=== PATIENT | male | born 1965 | race Caucasian/White ===

== ENCOUNTER 2020-12-19 09:46 | Emergency (ER) | payer OTHER, MEDICAID, SELFPAY ==
--- NOTE | 2020-12-19 09:52 | ED.MALEGU ---
HPI - Male Genitourinary General Chief complaint: Abdominal Pain Stated complaint: PAIN IN RIGHT SIDE Time Seen by Provider: 12/19/20 09:52 Source: patient and family Mode of arrival: Ambulatory Limitations: no limitations History of Present Illness HPI Narrative: 55-year-old male nonsmoker with history of hypertension, hyperlipidemia diabetes and kidney stones presents with his in the chief complaint of gradually worsening right-sided pain over the past few days. He states he feels like it started rather suddenly a few days ago and his back and has since wraps around his right side. He states at times he feels like he can not find a position of comfort and is rolling in bed, stating there is no obvious worsening of his pain either. He states sometimes when he moves his seems like his pain worsens and then will improve with rest. He has been nauseated has decreased appetite. He feels a bit bloated. He denies diarrhea or constipation. He denies any dysuria, frequency or urgency. He has had no fever or chills Related Data Home Medications Medication Instructions Recorded Confirmed atenolol 100 mg PO DAILY 12/19/20 12/19/20 atorvastatin 40 mg PO BEDTIME 12/19/20 12/19/20 glipizide 10 mg PO DAILY 12/19/20 12/19/20 meloxicam 15 mg PO DAILY 12/19/20 12/19/20 metformin 1,000 mg PO DAILY 12/19/20 12/19/20 Previous Rx's Medication Instructions Recorded hydrocodone-acetaminophen 1 tab PO Q4-6H PRN #10 tab 12/19/20 ketorolac 10 mg PO Q6H PRN #14 tab 12/19/20 ondansetron 4 mg PO TID-QID PRN #10 tab 12/19/20 tamsulosin [Flomax] 0.4 mg PO DAILY #10 cap 12/19/20 Allergies Allergy/AdvReac Type Severity Reaction Status Date / Time No Known Drug Allergies Allergy Verified 12/19/20 10:13 Review of Systems Constitutional Constitutional: Denies chills, Denies fatigue, Denies fever(s), Denies frequent falls, Denies lethargy and Denies weakness Eyes Eyes: Denies change in vision, Denies eye discharge, Denies irritation and Denies loss of vision ENT Ears, Nose, Mouth, and Throat: Denies change in voice, Denies dizziness, Denies neck pain, Denies sore throat and Denies throat swelling Cardiovascular Cardiovascular: Denies chest pain, Denies irregular heart rhythm, Denies lightheadedness, Denies palpitations, Denies dyspnea, Denies dyspnea on exertion and Denies orthopnea Respiratory Respiratory: Denies cough, Denies dyspnea, Denies dyspnea on exertion and Denies wheezing Gastrointestinal Gastrointestinal: Denies abdominal pain, Denies change in bowel habits, Denies diarrhea, Denies nausea and Denies vomiting Comments: bloating Genitourinary Genitourinary: Reports flank pain Genitourinary: Reports flank pain Musculoskeletal Musculoskeletal: Reports back pain, Denies neck pain and Denies numbness Integumentary/Breasts Skin/Breast: Denies pruritus, Denies erythema, Denies rash and Denies wounds Neurologic Neurologic: Denies behavioral changes, Denies confusion, Denies dizziness, Denies frequent falls, Denies loss of vision, Denies numbness and Denies weakness Psychiatric Psychiatric: Denies anxiety, Denies behavioral changes, Denies confusion, Denies depression, Denies homicidal ideation and Denies suicidal ideation Endocrine Endocrine: Denies fatigue, Denies flushing and Denies palpitations Hematologic/Lymphatic Hematologic/Lymphatic: Denies easy bruising Allergic/Immunologic Allergic/Immunologic: Denies urticaria, Denies throat swelling and Denies wheezing Patient History Social History Smoking Status: Never smoker Smoking Status: Never smoker alcohol intake frequency: 0-2 drinks per day Substance Use Type: does not use Exam Narrative Exam Narrative: GENERAL: [55] year old patient appears stated age. Well-nourished, well-developed patient, in mild distress. Rubbing his right side HEAD: Atraumatic. Normocephalic. EYES: Pupils equal round and reactive. Extraocular motions intact. No scleral icterus. No injection or drainage. ENT: Nose without bleeding, purulent drainage. Throat without erythema, tonsillar hypertrophy or exudate. Airway patent. NECK: Trachea midline. Non tender CARDIOVASCULAR: Regular rate and rhythm without murmurs, gallops, or rubs. RESPIRATORY: Clear to auscultation. Breath sounds equal bilaterally. No wheezes, rales, or rhonchi. GASTROINTESTINAL: Abdomen soft, non-tender, nondistended. EXTREMITIES: No edema or joint tenderness. BACK: Nontender without deformity or crepitance. No flank tenderness. NEURO: AOx3. SKIN: No rash or erythema of visible areas Initial Vital Signs Initial Vital Signs: Vital Signs Temperature 97.8 F 12/19/20 10:09 Pulse Rate 72 12/19/20 10:09 Respiratory Rate 18 12/19/20 10:09 Blood Pressure 216/124 H 12/19/20 10:09 Pulse Oximetry 99 12/19/20 10:09 Course Orders Ordered: Discontinued Medications Sodium Chloride (Normal Saline 0.9%) 1,000 mls @ 1,000 mls/hr IV BOLUS ONE Stop: 12/19/20 10:57 Last Admin: 12/19/20 11:39 Dose: Not Given Documented by: LAVONNE Ketorolac Tromethamine (Ketorolac 60 Mg/2 Ml Vial) 15 mg IV NOW ONE Stop: 12/19/20 09:59 Last Admin: 12/19/20 10:25 Dose: 15 mg Documented by: LAVONNE Vital Signs Vital signs: Vital Signs - 8 hr 12/19/20 10:09 Temperature 97.8 F Pulse Rate 72 Respiratory Rate 18 Blood Pressure 216/124 H Pulse Oximetry 99 MDM - Male Genitourinary Lab Data Result diagrams: 12/19/20 10:05 12/19/20 10:05 Labs: Lab Results 12/19/20 12/19/20 12/19/20 Range/Units 10:00 10:05 10:05 WBC 8.8 (4.5-11.0) X10^3/uL RBC 4.74 (4.5-5.9) X10^6/uL Hgb 14.2 (13.5-17.5) g/dL Hct 41.5 (41-53) % MCV 87.5 (80-100) fL MCH 30.0 (26-34) PG MCHC 34.3 (30-36) % RDW 13.2 (11.6-14.8) % Plt Count 230 (150-400) X10^3/uL Neut % (Auto) 64.2 (50-75) % Lymph % (Auto) 18.9 L (25-40) % [place] % (Auto) 11.6 (3-14) % Eos % (Auto) 4.4 H (2-4) % Baso % (Auto) 0.9 (0-2) % Neut # (Auto) 5600 (4878-9348) /uL Lymph # (Auto) 1700 (6267-6083) /uL [place] # (Auto) 1000 H (0-900) /uL Eos # (Auto) 400 (0-450) /uL Baso # (Auto) 100 (0-100) /uL Sodium 138 (137-145) mmol/L Potassium 4.6 (3.4-5.1) mmol/L Chloride 103 (98-107) mmol/L Carbon Dioxide 25 (22-32) mmol/L BUN 20 (9-20) mg/dL Creatinine 1.23 (0.66-1.25) mg/dL Estimated GFR > 60.0 (>60) mL/min BUN/Creatinine Ratio 16.3 (6-22) Glucose 123 H (70-100) mg/dL Calcium 9.7 (8.4-10.2) mg/dL Total Bilirubin 0.6 (0.2-1.3) mg/dL AST 26 (17-59) IU/L ALT 23 (<50) IU/L Alkaline Phosphatase 61 (38-126) U/L Total Protein 7.6 (6.3-8.2) g/dL Albumin 4.6 (3.5-5.0) g/dL Globulin 3.0 (1.7-4.1) g/dL Albumin/Globulin Ratio 1.5 (1.0-2.8) Lipase 70 (23-300) U/L Urine RBC 5-10/hpf H (0-5/HPF) Urine WBC None seen (0-5/HPF) Urine Bacteria None seen (None) Ur Culture Indicated? Cult not indicated Urine Dip Bedside Urine Glucose Negative Bedside Urine Bilirubin - Negative Bedside Urine Ketone - Negative Urine Specific [place] 1.025 Bedside Urine Occult Blood + Bedside Urine pH 6.0 Bedside Urine Protein - Negative Bedside Urine Urobilinogen - Negative Bedside Urine Nitrite - Negative Bedside Urine Leukocytes - Negative Esterase Imaging Data CT scan - abdomen/pelvis: Radiologist's Impression: [address] [id number] Scan ReportSigned Patient: Fernando PughNed#: [id number]: 1965Acct:[id number]/Sex: 55 / MDate of Service: 12/19/20Loc: EDAccession Number: [id number] Procedure: CT abdomen pelvis w con Ordering Provider: Chidi Odell D.O. PROCEDURE: CT ABDOMEN PELVIS W CON INDICATIONS: severe right sided abdominal pain, unlike prior kidney stone TECHNIQUE: After the administration of intravenous contrast, 5 mm thick sections acquired from the diaphragm to the symphysis. 5 mm coronal and sagittal reformats were acquired. For radiation dose reduction, the following was used: automated exposure control, adjustment of mA and/or kV according to patient size. COMPARISON: [facility], CR, XR ACUTE ABDOMEN SERIES, 12/19/2020, 10:02. FINDINGS: Image quality: Excellent. ABDOMEN: Lung bases: Lung bases are clear. Heart size is normal. Solid organs: Liver is normal in size and enhancement. Gallbladder wall is not thickened. Biliary system is non dilated. Pancreas enhances normally. Spleen is normal in size and enhancement. No adrenal nodules. There is an obstructing stone seen within the right proximal ureter, as on series 2, image 46 and on series 4, image 34, measuring 8 mm. There is associated moderate right-sided hydroureter and hydronephrosis. Nonobstructing bilateral renal stones are seen, which measure up to 2 mm on the right and up to 4 mm on the left. There is no left-sided hydronephrosis. There is a delayed nephrogram seen on the right. Peritoneum and bowel: Bowel loops demonstrate normal wall thickness and caliber. No free fluid or air. A rlvz-ga-wigcxzvo amount of stool can be seen within the proximal colon. Nodes and vessels: No retroperitoneal or mesenteric adenopathy by size criteria. Aorta and inferior vena cava are normal in size. Atherosclerotic calcification is noted. There is focal stenosis seen involving the proximal SMA, with largely soft plaque, with approximately 70% luminal narrowing, as on series 4, image 35 Miscellaneous: A mild periumbilical hernia is seen, containing fat. PELVIS: Genitourinary: Bladder wall thickness is normal. Miscellaneous: No inguinal hernias or adenopathy. Bones: No suspicious bony lesions. There is a remote L1 anterior wedge deformity. No acute vertebral body compression fractures. Degenerative changes are seen throughout, which are most prominent involving the lower lumbar spine IMPRESSION: There is an obstructing 8 mm stone seen within the right proximal ureter, with associated hydroureter and hydronephrosis. There is a delayed nephrogram seen on the right, which is suggestive of reduced kidney function. Nonobstructing bilateral renal stones can be seen. Focal narrowing of the proximal SMA, approximately 70%. A mild to moderate amount of stool can be seen within the proximal colon. Incidental note is made of: Mild periumbilical hernia Remote L1 anterior wedge deformity Focal lower lumbar spine degenerative change Note: Case discussed by telephone with Dr. Odell at 10:10 a.m. [place] time on December 19, 2020. Dictated by: Rocco Basilio M.D. on 12/19/2020 at 10:07 Approved by: Rocco Basilio M.D. on 12/19/2020 at 10:12 MDM Narrative Medical decision making narrative: Patient with a large obstructing proximal stone in the absence of any signs of sepsis. His pain is well controlled, he shows no sign of infection such as fever, elevated white blood cell count and no infectious findings in urine. He is able to tolerate orals. No evidence of acute kidney injury. Patient given extensive return precautions and encouraged to follow closely with Urology, he was notified that he very well could need a procedure to help the stone pass. He and understand and are in agreement with the diagnosis and plan. Questions answered to their apparent satisfaction Discharge Plan Departure Patient Disposition: Home Clinical Impression: Kidney stone on right side Instructions: DI for Kidney Stones Activity Restrictions/Additional Instructions: *You have been diagnosed with [8 mm kidney stone on the right side with some swelling of the ureter.Your kidney function is good and there is no sign of infection.] *What to do: *Take medications as directed: Prescription sent to [facility] in [place] *Follow up with your primary care provider in 2-3 days, call for an appointment. Let them know you were seen in the Emergency Department and that we ask that you be seen in follow up. I've given you contact information for Urology, you may need a procedure to help with this stone. Please call their office Monday morning to arrange an appointment and I will fax them a copy of your visit *Return to ER if you should have any new, worsening or concerning symptoms, such as [increasing pain, shaking chills, persistent vomiting or other bothersome symptoms] Prescriptions: New hydrocodone-acetaminophen 5-325 mg tablet 1 tab PO Q4-6H PRN (Reason: pain) Qty: 10 RF: 0 ketorolac 10 mg tablet 10 mg PO Q6H PRN (Reason: pain) Qty: 14 RF: 0 tamsulosin [Flomax] 0.4 mg capsule 0.4 mg PO DAILY Qty: 10 RF: 0 ondansetron 4 mg tablet,disintegrating 4 mg PO TID-QID PRN (Reason: nausea and vomiting) Qty: 10 RF: 0 No Action atorvastatin 40 mg tablet 40 mg PO BEDTIME RF: 0 meloxicam 15 mg tablet 15 mg PO DAILY RF: 0 glipizide 10 mg tablet 10 mg PO DAILY RF: 0 metformin 1,000 mg tablet 1,000 mg PO DAILY RF: 0 atenolol 50 mg tablet 100 mg PO DAILY RF: 0 Referrals: Deb Corley MD [Physician] - Kody Smith MD [Primary Care Provider] -
--- NOTE | 2020-12-19 09:59 | DI.RAD.S_ITS ---
PROCEDURE: XR ACUTE ABDOMEN SERIES INDICATIONS: Abdominal pain, decreased BM TECHNIQUE: One view chest and two views of the abdomen were acquired. COMPARISON: [facility], RG, XR CXR 1 VIEW, 12/06/2004, 15:55. [facility], RG, XR PELVIS 1V, 12/06/2004, 15:46. FINDINGS: Surgical changes and devices: None. Chest: Lungs are clear. The cardiac contours are within normal limits. The aorta demonstrates calcification and tortuosity. No pleural effusions. No pneumoperitoneum. Abdomen: Bowel gas pattern is normal. There is a moderate amount of stool seen within the colon. No suspicious calcifications. Visualized solid organ contours appear normal. Bones: No suspicious bony lesions. Age-appropriate bony degenerative changes are seen. IMPRESSION: There is a moderate amount of stool seen within the colon, which is consistent with the given history. Dictated by: Rocco Basilio M.D. on 12/19/2020 at 9:23 Approved by: Rocco Basilio M.D. on 12/19/2020 at 9:24
[2020-12-19 10:09] VITALS: BP 216/124; PULSE 72; RESP 18; TEMP 36.6; O2SAT 99
[2020-12-19 10:21] LABS: Add Manual Diff / Slide Review NO; Basophils Absolute Auto 100 /uL (0-100); Basophils Percent Auto 0.9 % (0-2); Eosinophils Absolute Auto 400 /uL (0-450); Eosinophils Percent Auto 4.4 % (2-4); Hematocrit 41.5 % (41-53); Hemoglobin 14.2 g/dL (13.5-17.5); Lymphocytes Absolute Auto 1700 /uL (1100-4500); Lymphocytes Percent Auto 18.9 % (25-40); Mean Corpuscular HGB Conc 34.3 % (30-36); Mean Corpuscular Volume 87.5 fL (80-100); Monocytes Absolute Auto 1000 /uL (0-900); Monocytes Percent Auto 11.6 % (3-14); Neutrophils Absolute Auto 5600 /uL (1500-7000); Neutrophils Percent Auto 64.2 % (50-75); Platelet Count 230 X10^3/uL (150-400); Red Blood Cell Count 4.74 X10^6/uL (4.5-5.9); Red Cell Distribution Width 13.2 % (11.6-14.8); White Blood Cell Count 8.8 X10^3/uL (4.5-11.0)
[2020-12-19] MEDS: KETOROLAC 60 MG/2 ML VIAL 15 MG IV (10:25)
[2020-12-19 10:27] LABS: Alanine Aminotransferase 23 IU/L (<50); Albumin 4.6 g/dL (3.5-5.0); Albumin Globulin Ratio 1.5 (1.0-2.8); Alkaline Phosphatase 61 U/L (38-126); Aspartate Aminotransferase 26 IU/L (17-59); BUN Creatinine Ratio 16.3 (6-22); Bilirubin Total 0.6 mg/dL (0.2-1.3); Blood Urea Nitrogen 20 mg/dL (9-20); Calcium 9.7 mg/dL (8.4-10.2); Carbon Dioxide 25 mmol/L (22-32); Chloride 103 mmol/L (98-107); Estimated Glomerular Filt Rate > 60.0 mL/min (>60); Glucose 123 mg/dL (70-100); HEMOLYSIS < 15 (0-50); Lipase 70 U/L (23-300); Potassium 4.6 mmol/L (3.4-5.1); Sodium 138 mmol/L (137-145); Total Protein 7.6 g/dL (6.3-8.2)
--- NOTE | 2020-12-19 10:34 | DI.CT.S_ITS ---
PROCEDURE: CT ABDOMEN PELVIS W CON INDICATIONS: severe right sided abdominal pain, unlike prior kidney stone TECHNIQUE: After the administration of intravenous contrast, 5 mm thick sections acquired from the diaphragm to the symphysis. 5 mm coronal and sagittal reformats were acquired. For radiation dose reduction, the following was used: automated exposure control, adjustment of mA and/or kV according to patient size. COMPARISON: [facility], CR, XR ACUTE ABDOMEN SERIES, 12/19/2020, 10:02. FINDINGS: Image quality: Excellent. ABDOMEN: Lung bases: Lung bases are clear. Heart size is normal. Solid organs: Liver is normal in size and enhancement. Gallbladder wall is not thickened. Biliary system is non dilated. Pancreas enhances normally. Spleen is normal in size and enhancement. No adrenal nodules. There is an obstructing stone seen within the right proximal ureter, as on series 2, image 46 and on series 4, image 34, measuring 8 mm. There is associated moderate right-sided hydroureter and hydronephrosis. Nonobstructing bilateral renal stones are seen, which measure up to 2 mm on the right and up to 4 mm on the left. There is no left-sided hydronephrosis. There is a delayed nephrogram seen on the right. Peritoneum and bowel: Bowel loops demonstrate normal wall thickness and caliber. No free fluid or air. A pvxh-vx-qszfoihd amount of stool can be seen within the proximal colon. Nodes and vessels: No retroperitoneal or mesenteric adenopathy by size criteria. Aorta and inferior vena cava are normal in size. Atherosclerotic calcification is noted. There is focal stenosis seen involving the proximal SMA, with largely soft plaque, with approximately 70% luminal narrowing, as on series 4, image 35 Miscellaneous: A mild periumbilical hernia is seen, containing fat. PELVIS: Genitourinary: Bladder wall thickness is normal. Miscellaneous: No inguinal hernias or adenopathy. Bones: No suspicious bony lesions. There is a remote L1 anterior wedge deformity. No acute vertebral body compression fractures. Degenerative changes are seen throughout, which are most prominent involving the lower lumbar spine IMPRESSION: There is an obstructing 8 mm stone seen within the right proximal ureter, with associated hydroureter and hydronephrosis. There is a delayed nephrogram seen on the right, which is suggestive of reduced kidney function. Nonobstructing bilateral renal stones can be seen. Focal narrowing of the proximal SMA, approximately 70%. A mild to moderate amount of stool can be seen within the proximal colon. Incidental note is made of: Mild periumbilical hernia Remote L1 anterior wedge deformity Focal lower lumbar spine degenerative change Note: Case discussed by telephone with Dr. Odell at 10:10 a.m. [place] time on December 19, 2020. Dictated by: Rocco Basilio M.D. on 12/19/2020 at 10:07 Approved by: Rocco Basilio M.D. on 12/19/2020 at 10:12
[2020-12-19 10:41] LABS: Bacteria Urine None Seen; WBC Urine None Seen (0-5/HPF)
[2020-12-19 11:11] LABS: Culture Indicated Urine Cult Not Indicated; RBC Urine 5-10/HPF (0-5/HPF)
[2020-12-19 11:39] VITALS: BP 194/99; PULSE 69; RESP 16; O2SAT 98
== END 2020-12-19 11:40 | disposition home or self-care (01) ==
PROVIDERS: Emergency Provider Emergency Medicine; PCP Family Medicine
DX: N20.0 Calculus of kidney (principal); R11.0 Nausea
CPT/HCPCS: 36415; 74022; 74177; 80053; 81003; 81015; 83690; 85025; 96374; 99284; J1885; Q9967

== ENCOUNTER → 2020-12-22 13:37 | Outpatient (CLI) | payer OTHER, MEDICAID, SELFPAY ==
--- NOTE | 2020-12-22 13:42 | DI.RAD.S_ITS ---
PROCEDURE: XR KUB INDICATIONS: Kidney stone TECHNIQUE: One view of the abdomen acquired. COMPARISON: [facility], CT, CT ABDOMEN PELVIS W CON, 12/19/2020, 10:50. [facility], CR, XR ACUTE ABDOMEN SERIES, 12/19/2020, 10:02. FINDINGS: Surgical changes and devices: None. Bowel: Bowel gas pattern is normal. Soft tissues: No new suspicious abdominal calcifications. The obstructive calculus within the proximal right ureter is again seen, without significant change in position and appears somewhat smaller than it had on CT scanning, but overall measures approximately 6 x 7 mm. Visualized solid organ contours appear normal in size. Bones: No suspicious bony lesions. IMPRESSION: Proximal right ureteral stone measures approximately 6 x 7 mm, in the same position as it was present in on CT scanning 12/19/20. Dictated by: Khurram Hardy M.D. on 12/22/2020 at 15:20 Approved by: Khurram Hardy M.D. on 12/22/2020 at 15:27
== END ==
PROVIDERS: PCP Family Medicine; Referring Provider Specialist; Visit Provider Specialist
DX: N20.1 Calculus of ureter (principal)
CPT/HCPCS: 74018

== ENCOUNTER → 2023-10-04 10:51 | Outpatient (CLI) | payer OTHER, MEDICAID, SELFPAY ==
--- NOTE | 2023-10-04 | DI.RAD.S_ITS ---
PROCEDURE: XR KNEE LT 3V INDICATIONS: LEFT KNEE PAIN TECHNIQUE: 3 views of the knee were acquired. COMPARISON: None. FINDINGS: Bones: Cortical lucency through the tibial spine and lateral tibial plateau. Soft tissues: Large joint effusion. No suspicious soft tissue calcifications. IMPRESSION: Cortical lucency through the lateral tibial plateau and tibial spine. Differential includes artifact or may indicate fracture. Additionally, there is a large joint effusion. Consider MRI to evaluate for injury. Dictated by: Ga Larry M.D. on 10/04/2023 at 11:50 Approved by: Ga Larry M.D. on 10/04/2023 at 11:51
== END ==
LOC: RAD 10:53
PROVIDERS: PCP Family Medicine; Referring Provider Family Medicine; Visit Provider Family Medicine
DX: M25.562 Pain in left knee (principal); M25.462 Effusion, left knee
CPT/HCPCS: 73562

== ENCOUNTER → 2023-10-08 07:43 | Outpatient (CLI) | payer OTHER, MEDICAID, SELFPAY ==
--- NOTE | 2023-10-08 07:44 | DI.MRI.S_ITS ---
PROCEDURE: MR KNEE LT WO CON INDICATIONS: Pain in left knee TECHNIQUE: Noncontrast sagittal PD fast spin echo and T2 fast spin echo with fat saturation, sagittal 3-D FLASH with fat saturation; coronal T1 spin echo and PD fast spin echo with fat saturation, and axial PD fast spin echo with fat saturation through the knee. COMPARISON: [facility], CR, XR KNEE LT 3V, 10/04/2023, 11:01. FINDINGS: Image quality: Excellent. Menisci: Peripheral displacement of medial meniscus bowing medial collateral ligament is seen. Complex oblique tear involving body and posterior horn of medial meniscus is seen extending to both superior and inferior articulating surfaces. The lateral meniscus is intact. The meniscal root ligaments appear intact. Cruciate ligaments: The anterior cruciate ligament is thickened with intrasubstance T2 hyperintense signal. The posterior cruciate ligament is intact. Medial structures: The medial collateral ligament appears thickened with surrounding soft tissue edema at its proximal insertion. Visualized portions of the pes anserinus tendons appear normal. No abnormal bursal fluid. Lateral structures: The lateral collateral ligament, long and short heads of the biceps femoris tendon appear intact. The popliteus tendon appears normal. Iliotibial band appears normal. Anterior structures: Nonspecific mild soft tissue edema along anterior aspect of patella and patella tendon is seen. Small amount of fluid distending prepatellar bursa is also noted. The quadriceps and patellar tendons appear intact. Patellar alignment is normal. No femoral trochlear dysplasia or ventral trochlear prominence. No edema in the infrapatellar fat pad. Bones and cartilage: No bone marrow contusions or fractures. 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 Low-grade chondromalacia is also noted involving medial facet of patella cartilage. Joint space: There is moderate knee joint fluid. No Bull's cyst. Normal appearing synovial plicae are incidentally noted. IMPRESSION: 1. Complex tear involving body and posterior horn of medial meniscus extending to both superior and inferior articulating surfaces. The lateral meniscus is intact. 2. Thickened ACL with intrasubstance T2 hyperintense signal suggestive of low to moderate grade intrasubstance partial-thickness tear. No full-thickness ACL rupture. The PCL is intact. 3. Low to moderate grade sprain/intrasubstance partial-thickness tear involving medial collateral ligament. 4. Fluid within prepatellar bursa concerning for low-grade bursitis. The quadriceps tendon and patellar tendon are intact. 5. 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 Low-grade chondromalacia also noted involving medial facet of patella cartilage. No fracture or dislocation. 6. Moderate joint effusion, no gross loose bodies. Dictated by: Laurent Aguilar M.D. on 10/09/2023 at 10:05 Approved by: Laurent Aguilar M.D. on 10/09/2023 at 11:05
== END ==
LOC: MRI 07:43
PROVIDERS: PCP Family Medicine; Referring Provider Family Medicine; Visit Provider Family Medicine
DX: S83.232A Complex tear of medial meniscus, current injury, left knee, initial encounter (principal); S83.412A Sprain of medial collateral ligament of left knee, initial encounter; M17.12 Unilateral primary osteoarthritis, left knee; M22.42 Chondromalacia patellae, left knee; M25.562 Pain in left knee; M25.462 Effusion, left knee
CPT/HCPCS: 73721

== ENCOUNTER 2024-03-26 09:45 | Outpatient (RCR) | payer OTHER, MEDICAID, SELFPAY ==
--- NOTE | 2024-02-13 18:29 | PT.OIE ---
Current Diagnoses Stiffness of unspecified knee, not elsewhere classified (02/13/24) Muscle weakness (generalized) (02/13/24) Other abnormalities of gait and mobility (02/13/24) Other specified postprocedural states (02/13/24) Visit Care Team Role Provider Type Kody Smith MD Family Provider Physician Primary Care Provider Specialty: Family Practice Address: [facility] [place], [address] Email: [email or web address] Mayi Arauz PA-C Attending Provider Non-Staff Referring Provider Specialty: General Surgery Address: [address] [place] [address], [id number] Email: Physical Therapy Initial Evaluation PT-OP-A Visit Information Start: 02/08/24 18:59 Freq: Status: Active Protocol: Document 02/13/24 13:33 LRN (Rec: 02/13/24 18:25 LRN [id number]) Out-Patient Physical Therapy Visit Information Visit Information Visit Type Initial Evaluation Visit Start Time 13:33 Visit Stop Time 14:24 Visit Number 1 Evaluation Information Evaluation Date 02/13/24 Precautions Precautions Diabetes type II, HBP mostly controlled. PT-OP-B Current Condition Start: 02/08/24 18:59 Freq: Status: Active Protocol: Document 02/13/24 13:33 LRN (Rec: 02/13/24 18:25 LRN [id number]) Current Condition History of Current Condition Onset Date 3 wks ago (01/24/24) Current Complaints R knee pain at rest, difficulty walking, rtn to work part-time. History of Current Condition Pt is s/p L knee arthroscopy with medial menisectomy and chondroplasty surgery due to reported torn ACL & meniscus, performed at [facility]. Pt states he has had L knee pain a few years, but 5 months ago twisted wrong and had increased swelling for 3 months and subsequest surgery. He states he has HBP that is now under reasonable control with diet and medication. States avg BP is 150/90 (taken 3 wks ago). Walking is most comfortable. If sit for any length of time it is most uncomfortable. 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 Treatment Goals Patient/Caregiver Goals Pt goal is to: -improve L knee ROM, -decrease ache at nighttime ( current 7/10), -walk with a normal gait, -finish work of cabinets, 8 hr day, 6/days a week with pain less than 7/10. -HEP. 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 PT-OP-C Subjective Start: 02/08/24 18:59 Freq: Status: Active Protocol: Document 02/13/24 13:33 LRN (Rec: 02/13/24 18:25 LRN [id number]) Patient Questionnaires Lower Extremity Functional Scale LEFS Score 41 LEFS Impairment 40 to 59% Impaired (Score 32- 47) OP-PT Pain Assessment Pain Assessment Grid Paper Pain Assessment Grid Completed Yes Location L knee Pain Location Details Generally at L knee joint Intensity 7 Scale Used Numeric (0 - 10) Description Aching PT-OP-D Balance Start: 02/08/24 18:59 Freq: Status: Active Protocol: Document 02/13/24 13:33 LRN (Rec: 02/13/24 18:25 LRN [id number]) OP-PT Balance Assessment Standing Balance Static Standing Balance Ability Good Dynamic Standing Balance Ability Good Device Used None Standing Balance Comments Pt weight bears more on RLE. Not appropriate for Single leg stance balancing. Villarreal Fall Scale Copyright Permission PT-OP-G Mobility & Gait Start: 02/08/24 18:59 Freq: Status: Active Protocol: Document 02/13/24 13:33 LRN (Rec: 02/13/24 18:25 LRN [id number]) OP Gait Assessment Gait Gait Assistance Required: Independent Able to Maintain Weight Bearing Status Yes During Gait Assistive Devices Assistive Device None Gait Deviations General Gait Pattern Antalgic,Decreased Stride Length,Lateral Trunk Lean,Wide Based Gait Factors Limiting Gait Function Factors Limiting Gait Function Decreased Activity Tolerance, Decreased Sensation,Decreased Strength,Limited Range of Motion,Pain,Poor Balance Stair Climbing Evaluation Technique/Endurance Stair Climbing Direction Ascend and Descend Stair Climbing Technique Step to Step Number of Steps Climbed 4 Comments Stair Climbing Comments Pt reports not ambulating stairs, at home has chair lift . Pt has 16 stairs at home ( shop below). Pt reports at work ambulating 4 steps in a step to step gait . PT-OP-H Neuro Start: 02/08/24 18:59 Freq: Status: Active Protocol: Document 02/13/24 13:33 LRN (Rec: 02/13/24 18:25 LRN [id number]) Sensation Evaluation Comments Summary Comments Decreased sensation to soft touch at posterolateral L knee jt and lateral lower leg. PT-OP-J Posture/Palpation/Skin Start: 02/08/24 18:59 Freq: Status: Active Protocol: Document 02/13/24 13:33 LRN (Rec: 02/13/24 18:25 LRN [id number]) Posture Evaluation Position Standing T-Spine Posture Increased Kyphosis L-Spine Posture Decreased Lordosis Weight Distribution Weight Shifted Right Hip Posture (L) Flexed,(R) Flexed Knee Posture (L) Excess Flexion Comments Posture Comments Hips flexed 3 deg's Palpation Assessment Location L knee Palpation Location L knee anteriorly Palpation Findings Edema,Soft Tissue Tightness, Tenderness Palpation Details Increased temperature anteriorly of knee joint. PT-OP-K Range of Motion Start: 02/08/24 18:59 Freq: Status: Active Protocol: Document 02/13/24 13:33 LRN (Rec: 02/13/24 18:25 LRN [id number]) Knee Goniometric Range of Motion Knee Right Knee ROM WFL Yes Patient Position Supine Flexion Active (degrees) 128 Extension Active (degrees) 0 Comments AROM: 0-128 deg's with R knee pain. AROM: 0-120 deg's painfree range. Left Knee ROM WFL No Patient Position Supine Flexion Active (degrees) 87 Extension Active (degrees) 15 PT-OP-M Strength Start: 02/08/24 18:59 Freq: Status: Active Protocol: Document 02/13/24 13:33 LRN (Rec: 02/13/24 18:25 LRN [id number]) Hip Strength Hip Manual Muscle Testing Right Comments Generally 5/5 except deferred IR/ER MMT. Left Flexion (L2) 3 Fair Abduction 5 Normal Adduction 2 Poor Comments Deferred IR/ER MMT due to surgery. Knee Strength Knee Manual Muscle Testing Right Comments Generally 5/5 Left Flexion (S2) 3 Fair Extension (L3) 3 Fair Comments Deferred due to pain. Pt is not able to perform full AROM due to pain. Ankle/Foot Strength Ankle and Foot Manual Muscle Testing Right Comments Generally 5/5 Left Dorsiflexion (L4) 5 Normal Plantarflexion (S1) 5 Normal Inversion 4 Good Eversion (S1) 5 Normal PT-OP-Q Treatments Start: 02/08/24 18:59 Freq: Status: Active Protocol: Document 02/13/24 13:33 LRN (Rec: 02/13/24 18:25 LRN [id number]) Therapeutic Exercises Supine Exercises Heel Slide Side left Reps/Minutes 1-2 SH, 8-10x SLR Side left Reps/Minutes 10x Comments Cued to breath QS Side left Reps/Minutes 1 SH x 16 SAQ Side left Equipment Used Pillow roll under thigh Reps/Minutes 7x - 10x Self-Care/Home Management Treatment Education Other Education Discussed results of evaluation, goals, and plan of care (POC) with pt, discussed attendance/cx/dns policy; pt agreeable to goals, attendance /cx/dns policy and POC. Pt educated in self care edema management (RICE) with instructions to skin from ice pack with towel, I/S pt on how to ice at work and elevate legs at lunchtime and at home. Suggested FREDDY wrap of knee while at work if he has one. Activities Self-Care/Home Management Activities Issued & reviewed HEP: Sitting active knee flex/ext; supine: QS, SLR, hip AB/AD. PT-OP-T Assessment and Plan Start: 02/08/24 18:59 Freq: Status: Active Protocol: Document 02/13/24 13:33 LRN (Rec: 02/13/24 18:25 LRN [id number]) Physical Therapy Assessment Rehab Potential Rehabilitation Potential Good Evaluation Complexity Number of Personal Factors/Comorbidities 1-2 Number of Body Systems Impaired 4 or More Clinical Presentation at Evaluation Evolving Impairments Impairments Activity Tolerance,Balance, Functional Activities,Gait, Pain,Posture,ROM,Sensation, Soft Tissue Mobility,Strength, Transfers Goals Four Impairment L knee achy pain rated 7/10 Impairment Swelling and pain in L knee with L knee nighttime pain rated 7/10. Short Term Goal (STG) Pt will be educated in sleeping postures and use of FREDDY wrap to reduce L knee edema and pain. STG Duration 2 wks - 02/27/24 Commodity Analyst Goal (LTG) Decrease ache at nighttime to no greater than 3/10 to improve sleep. LTG Duration 8 wks-04/12/24 Three Impairment Decreased L knee strength limiting gait Short Term Goal (STG) Improve L knee/hip strength to 4/5 with pt able to walk with a normal gait. STG Duration 4 wks-03/12/24 Commodity Analyst Goal (LTG) Improve L knee/hip strength with pt tolerating finish work of cabinets, at prior level of: 8 hr days, 6 days a week. LTG Duration 8 wks-04/12/24 Two Impairment Decreased L knee AROM limiting stair ambulation Short Term Goal (STG) Improve L knee AROM 0-100 deg' s with pt able to tolerate sitting in chair for 15-30 minutes for meals. STG Duration 4 wks-03/12/24 Group Home Goal (LTG) Improve L knee AROM to 0-115 deg's with pt able to amb stairs with a step over step gait. LTG Duration 8 wks-04/12/24 One Impairment Pt lacks appropriate self care HEP. Short Term Goal (STG) Pt will be educated in proper standing posture. STG Duration 1 wks - 02/20/24 Group Home Goal (LTG) Pt will be independent in an effective self care HEP for core/hip strengthening and mobility ex's. LTG Duration 8 wks-04/12/24 Assessment Summary Assessment Pt is a 58 yo male who is almost 3 wks s/p L knee arthroscopy with medial menisectomy and chondroplasty surgery due to a reported torn ACL & meniscus. As expected, the pt is decreased in L knee AROM and strength, and in L hip/ankle strength resulting in antalgic gait and reported difficulty with stair ambulation. Balance was not formally assessed but the pt avoids full weightbearing on his L LE; therefore balance is limited. The pt will benefit from skilled physical therapy to work towards achieving the above stated goals. Physical Therapy Plan Frequency and Duration Frequency of Treatment 2x/Week Duration of treatment (weeks) 18 Plan of Care Start Date 02/13/24 Plan of Care End Date 04/12/24 Therapeutic Interventions Therapeutic Interventions Gait Training,Home Exercise Program,Joint Mobilizations, Manual Therapy,Neuromuscular Re-education,Self-Care/Home Management,Soft Tissue Mobilization,Taping, Therapeutic Activities, Therapeutic Exercises Modalities Cold Pack/Ice Massage,Electric Stimulation,Hot Packs, Ultrasound Next Visit Focus/Plan Next Note Type Treatment Note Next Visit Plan Check BP. Assess hip PROM and MMT hip IR/ER. Review HEP & use of FREDDY wrap if pt wants to use one during work hours. Assess response to RICE technique for edema/pain management (measure swelling). Progress AROM ex to improve ROM and if tolerated can start closed chain very low resistance LE strengthening ( bike) and progress Jorge LLE strengthening to include ankle and hip strengthening. POC: L knee ROM, strengthening, gait (level & stairs), balance training.
--- NOTE | 2024-02-13 18:29 | PT.OPPOC ---
Physical, Occupational & Speech Therapy At [facility] Current Diagnoses Stiffness of unspecified knee, not elsewhere classified (02/13/24) Muscle weakness (generalized) (02/13/24) Other abnormalities of gait and mobility (02/13/24) Other specified postprocedural states (02/13/24) Visit Care Team Role Provider Type Kody Smith MD Family Provider Physician Primary Care Provider Specialty: Family Practice Address: [facility] [place], [address] Email: [email or web address] Mayi Arauz PA-C Attending Provider Non-Staff Referring Provider Specialty: General Surgery Address: [address] [place] [address], [address] Email: Plan Of Care PT-OP-T Assessment and Plan Start: 02/08/24 18:59 Freq: Status: Active Protocol: Document 02/13/24 13:33 LRN (Rec: 02/13/24 18:25 LRN [id number]) Physical Therapy Assessment Rehab Potential Rehabilitation Potential Good Evaluation Complexity Number of Personal Factors/Comorbidities 1-2 Number of Body Systems Impaired 4 or More Clinical Presentation at Evaluation Evolving Impairments Impairments Activity Tolerance,Balance, Functional Activities,Gait, Pain,Posture,ROM,Sensation, Soft Tissue Mobility,Strength, Transfers Goals Four Impairment L knee achy pain rated 7/10 Impairment Swelling and pain in L knee with L knee nighttime pain rated 7/10. Short Term Goal (STG) Pt will be educated in sleeping postures and use of FREDDY wrap to reduce L knee edema and pain. STG Duration 2 wks - 02/27/24 Usp Goal (LTG) Decrease ache at nighttime to no greater than 3/10 to improve sleep. LTG Duration 8 wks-04/12/24 Three Impairment Decreased L knee strength limiting gait Short Term Goal (STG) Improve L knee/hip strength to 4/5 with pt able to walk with a normal gait. STG Duration 4 wks-03/12/24 Automotive Sales Associate Goal (LTG) Improve L knee/hip strength with pt tolerating finish work of cabinets, at prior level of: 8 hr days, 6 days a week. LTG Duration 8 wks-04/12/24 Two Impairment Decreased L knee AROM limiting stair ambulation Short Term Goal (STG) Improve L knee AROM 0-100 deg' s with pt able to tolerate sitting in chair for 15-30 minutes for meals. STG Duration 4 wks-03/12/24 Usp Goal (LTG) Improve L knee AROM to 0-115 deg's with pt able to amb stairs with a step over step gait. LTG Duration 8 wks-04/12/24 One Impairment Pt lacks appropriate self care HEP. Short Term Goal (STG) Pt will be educated in proper standing posture. STG Duration 1 wks - 02/20/24 Automotive Sales Associate Goal (LTG) Pt will be independent in an effective self care HEP for core/hip strengthening and mobility ex's. LTG Duration 8 wks-04/12/24 Assessment Summary Assessment Pt is a 58 yo male who is almost 3 wks s/p L knee arthroscopy with medial menisectomy and chondroplasty surgery due to a reported torn ACL & meniscus. As expected, the pt is decreased in L knee AROM and strength, and in L hip/ankle strength resulting in antalgic gait and reported difficulty with stair ambulation. Balance was not formally assessed but the pt avoids full weightbearing on his L LE; therefore balance is limited. The pt will benefit from skilled physical therapy to work towards achieving the above stated goals. Physical Therapy Plan Frequency and Duration Frequency of Treatment 2x/Week Duration of treatment (weeks) 18 Plan of Care Start Date 02/13/24 Plan of Care End Date 04/12/24 Therapeutic Interventions Therapeutic Interventions Gait Training,Home Exercise Program,Joint Mobilizations, Manual Therapy,Neuromuscular Re-education,Self-Care/Home Management,Soft Tissue Mobilization,Taping, Therapeutic Activities, Therapeutic Exercises Modalities Cold Pack/Ice Massage,Electric Stimulation,Hot Packs, Ultrasound Next Visit Focus/Plan Next Note Type Treatment Note Next Visit Plan Check BP. Assess hip PROM and MMT hip IR/ER. Review HEP & use of FREDDY wrap if pt wants to use one during work hours. Assess response to RICE technique for edema/pain management (measure swelling). Progress AROM ex to improve ROM and if tolerated can start closed chain very low resistance LE strengthening ( bike) and progress Jorge LLE strengthening to include ankle and hip strengthening. POC: L knee ROM, strengthening, gait (level & stairs), balance training. Plan of Care Dates Plan of Care Start Date 02/13/24 Plan of Care End Date 04/12/24 Electronically Signed by: Sarah Cobian, PT 02/13/24 2149 If you are in agreement with this Plan of Care, please return a signed and dated copy. I have reviewed this Plan of Care and certify that the skilled therapy services above are required to meet the patient?s needs. Physician Signature Date Printed Name and Credentials Clinical Instructor Signature Printed Name and Credentials
--- NOTE | 2024-02-15 17:48 | PT.OTN ---
Current Diagnoses Stiffness of unspecified knee, not elsewhere classified (02/15/24) Muscle weakness (generalized) (02/15/24) Other abnormalities of gait and mobility (02/15/24) Other specified postprocedural states (02/15/24) Physical Therapy Treatment Note PT-OP-A Visit Information Start: 02/08/24 18:59 Freq: Status: Active Protocol: Document 02/15/24 09:56 LRN (Rec: 02/15/24 10:37 LRN [id number]) Out-Patient Physical Therapy Visit Information Visit Information Visit Type Treatment Note Visit Note Supine: End of treatment: BP after 2' rest: 156/86; HR 65 Visit Start Time 09:56 Visit Stop Time 10:36 Visit Number 2 Evaluation Information Evaluation Date 02/13/24 Precautions Precautions Diabetes type II, HBP mostly controlled. PT-OP-B Current Condition Start: 02/08/24 18:59 Freq: Status: Active Protocol: Document 02/13/24 13:33 LRN (Rec: 02/13/24 18:25 LRN [id number]) Current Condition History of Current Condition Onset Date 3 wks ago (01/24/24) Current Complaints R knee pain at rest, difficulty walking, rtn to work part-time. History of Current Condition Pt is s/p L knee arthroscopy with medial menisectomy and chondroplasty surgery due to reported torn ACL & meniscus, performed at [facility]. Pt states he has had L knee pain a few years, but 5 months ago twisted wrong and had increased swelling for 3 months and subsequest surgery. He states he has HBP that is now under reasonable control with diet and medication. States avg BP is 150/90 (taken 3 wks ago). Walking is most comfortable. If sit for any length of time it is most uncomfortable. 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 Treatment Goals Patient/Caregiver Goals Pt goal is to: -improve L knee ROM, -decrease ache at nighttime ( current 7/10), -walk with a normal gait, -finish work of cabinets, 8 hr day, 6/days a week with pain less than 7/10. -HEP. 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 PT-OP-C Subjective Start: 02/08/24 18:59 Freq: Status: Active Protocol: Document 02/15/24 09:56 LRN (Rec: 02/15/24 10:37 LRN [id number]) OP-PT Subjective Patient Comments Patient Comments Doing icing a lot. Exercising on bed PT-OP-D Balance Start: 02/08/24 18:59 Freq: Status: Active Protocol: Document 02/13/24 13:33 LRN (Rec: 02/13/24 18:25 LRN [id number]) OP-PT Balance Assessment Standing Balance Static Standing Balance Ability Good Dynamic Standing Balance Ability Good Device Used None Standing Balance Comments Pt weight bears more on RLE. Not appropriate for Single leg stance balancing. Villarreal Fall Scale Copyright Permission PT-OP-G Mobility & Gait Start: 02/08/24 18:59 Freq: Status: Active Protocol: Document 02/13/24 13:33 LRN (Rec: 02/13/24 18:25 LRN [id number]) OP Gait Assessment Gait Gait Assistance Required: Independent Able to Maintain Weight Bearing Status Yes During Gait Assistive Devices Assistive Device None Gait Deviations General Gait Pattern Antalgic,Decreased Stride Length,Lateral Trunk Lean,Wide Based Gait Factors Limiting Gait Function Factors Limiting Gait Function Decreased Activity Tolerance, Decreased Sensation,Decreased Strength,Limited Range of Motion,Pain,Poor Balance Stair Climbing Evaluation Technique/Endurance Stair Climbing Direction Ascend and Descend Stair Climbing Technique Step to Step Number of Steps Climbed 4 Comments Stair Climbing Comments Pt reports not ambulating stairs, at home has chair lift . Pt has 16 stairs at home ( shop below). Pt reports at work ambulating 4 steps in a step to step gait . PT-OP-H Neuro Start: 02/08/24 18:59 Freq: Status: Active Protocol: Document 02/13/24 13:33 LRN (Rec: 02/13/24 18:25 LRN [id number]) Sensation Evaluation Comments Summary Comments Decreased sensation to soft touch at posterolateral L knee jt and lateral lower leg. PT-OP-J Posture/Palpation/Skin Start: 02/08/24 18:59 Freq: Status: Active Protocol: Document 02/15/24 09:56 LRN (Rec: 02/15/24 17:18 LRN [id number]) Skin Assessment Circumference Measurement L knee Location 5 cm above patella, jt line, 5 cm below jt line Comments Girth msmt respectively (cm): 46.5, 41, 35.5 PT-OP-K Range of Motion Start: 02/08/24 18:59 Freq: Status: Active Protocol: Document 02/13/24 13:33 LRN (Rec: 02/13/24 18:25 LRN [id number]) Knee Goniometric Range of Motion Knee Right Knee ROM WFL Yes Patient Position Supine Flexion Active (degrees) 128 Extension Active (degrees) 0 Comments AROM: 0-128 deg's with R knee pain. AROM: 0-120 deg's painfree range. Left Knee ROM WFL No Patient Position Supine Flexion Active (degrees) 87 Extension Active (degrees) 15 PT-OP-M Strength Start: 02/08/24 18:59 Freq: Status: Active Protocol: Document 02/13/24 13:33 LRN (Rec: 02/13/24 18:25 LRN [id number]) Hip Strength Hip Manual Muscle Testing Right Comments Generally 5/5 except deferred IR/ER MMT. Left Flexion (L2) 3 Fair Abduction 5 Normal Adduction 2 Poor Comments Deferred IR/ER MMT due to surgery. Knee Strength Knee Manual Muscle Testing Right Comments Generally 5/5 Left Flexion (S2) 3 Fair Extension (L3) 3 Fair Comments Deferred due to pain. Pt is not able to perform full AROM due to pain. Ankle/Foot Strength Ankle and Foot Manual Muscle Testing Right Comments Generally 5/5 Left Dorsiflexion (L4) 5 Normal Plantarflexion (S1) 5 Normal Inversion 4 Good Eversion (S1) 5 Normal PT-OP-Q Treatments Start: 02/08/24 18:59 Freq: Status: Active Protocol: Document 02/15/24 09:56 LRN (Rec: 02/15/24 10:37 LRN [id number]) Therapeutic Exercises Supine Exercises Heel Slide Side left Reps/Minutes 2-3 SH, 15x 2 Comments Extra time to determine max tolerated stretch SLR Side left Reps/Minutes 15x Comments Cued to breath QS Side left Reps/Minutes 1 SH x 10 Comments Much extra time to determine position of tolerance. SAQ Side left Equipment Used Blue roll under knee Reps/Minutes 5 SH, 12-15x Sitting Exercises Knee flex/ext Sitting Exercise Name AROM knee flex/ext Side left Reps/Minutes 6' Gait Training Gait Activity Gait w/cane Description Gait with cane on R side Surface level Distance/Duration 4' Treatment Focus No limp Comments Discussed pt use of support to LLE with use of crutch or cane for gait. Manual Therapy Treatment Manual Techniques Blood pressure Type Blood pressure taken at end of treatment after rest in supine. Body Location L arm Comments See Visit note: BP after 2' rest: 156/86; HR 65 Girth measurements Type L knee girth measurement: See palpation above. PT-OP-T Assessment and Plan Start: 02/08/24 18:59 Freq: Status: Active Protocol: Document 02/15/24 09:56 LRN (Rec: 02/15/24 10:37 LRN [id number]) Physical Therapy Assessment Goals Four Impairment L knee achy pain rated 7/10 Impairment Swelling and pain in L knee with L knee nighttime pain rated 7/10. Short Term Goal (STG) Pt will be educated in sleeping postures and use of FREDDY wrap to reduce L knee edema and pain. STG Duration 2 wks - 02/27/24 M[facility] Goal (LTG) Decrease ache at nighttime to no greater than 3/10 to improve sleep. LTG Duration 8 wks-04/12/24 Three Impairment Decreased L knee strength limiting gait Short Term Goal (STG) Improve L knee/hip strength to 4/5 with pt able to walk with a normal gait. STG Duration 4 wks-03/12/24 Mcc Goal (LTG) Improve L knee/hip strength with pt tolerating finish work of cabinets, at prior level of: 8 hr days, 6 days a week. LTG Duration 8 wks-04/12/24 Two Impairment Decreased L knee AROM limiting stair ambulation Short Term Goal (STG) Improve L knee AROM 0-100 deg' s with pt able to tolerate sitting in chair for 15-30 minutes for meals. STG Duration 4 wks-03/12/24 Test Cell Technician Goal (LTG) Improve L knee AROM to 0-115 deg's with pt able to amb stairs with a step over step gait. LTG Duration 8 wks-04/12/24 One Impairment Pt lacks appropriate self care HEP. Short Term Goal (STG) Pt will be educated in proper standing posture. STG Duration 1 wks - 02/20/24 Mcc Goal (LTG) Pt will be independent in an effective self care HEP for core/hip strengthening and mobility ex's. LTG Duration 8 wks-04/12/24 Assessment Summary Assessment Pt is a 58 yo male who is almost 3 wks s/p L knee arthroscopy with medial menisectomy and chondroplasty surgery due to a reported torn ACL & meniscus. Today he reports doing RICE technique at home, pain is less with use of cryotherapy; improved tolerance to ex with increased reps w/exercise. Physical Therapy Plan Frequency and Duration Frequency of Treatment 2x/Week Duration of treatment (weeks) 18 Plan of Care Start Date 02/13/24 Plan of Care End Date 04/12/24 Next Visit Focus/Plan Next Note Type Treatment Note Next Visit Plan Check BP for norm (1-2 more visits). Assess Hip PROM & MMT hip IR/ER. Discuss possible use of FREDDY wrap during work hours & educ in use (STG 4). ROM L knee. Progress AROM, start closed chain when appropriate ROM ( bike) very low resistance LE strengthening (bike) and progress Jorge LLE strengthening to include ankle and hip strengthening. Next: educate in proper standing posture (STG 1) & educate in sleeping postures ( STG 4). POC: L knee ROM, strengthening, gait (level & stairs), balance training.
--- NOTE | 2024-02-19 15:57 | PT-OP ANOTE ---
[employer] called, spoke with office staff and medical records, requested post op left knee notes from referring FILOMENA Hickman and asked to include if a protocol should utilized for safe guidance in PT, did receive referral.
--- NOTE | 2024-02-20 09:55 | PT.OTN ---
Current Diagnoses Stiffness of unspecified knee, not elsewhere classified (02/20/24) Muscle weakness (generalized) (02/20/24) Other abnormalities of gait and mobility (02/20/24) Other specified postprocedural states (02/20/24) Physical Therapy Treatment Note PT-OP-A Visit Information Start: 02/08/24 18:59 Freq: Status: Active Protocol: Document 02/20/24 09:05 SP (Rec: 02/20/24 09:57 SP [id number]) Out-Patient Physical Therapy Visit Information Visit Information Visit Type Treatment Note Visit Start Time 09:05 Visit Stop Time 09:55 Visit Number 3 Number of RACKET STRINGER Visits 1 Evaluation Information Evaluation Date 02/13/24 Precautions Precautions Diabetes type II, HBP mostly controlled. *01/24/24: s/p L knee arthroscopy with medial menisectomy and chondroplasty surgery PT-OP-B Current Condition Start: 02/08/24 18:59 Freq: Status: Active Protocol: Document 02/13/24 13:33 LRN (Rec: 02/13/24 18:25 LRN [id number]) Current Condition History of Current Condition Onset Date 3 wks ago (01/24/24) Current Complaints R knee pain at rest, difficulty walking, rtn to work part-time. History of Current Condition Pt is s/p L knee arthroscopy with medial menisectomy and chondroplasty surgery due to reported torn ACL & meniscus, performed at [facility]. Pt states he has had L knee pain a few years, but 5 months ago twisted wrong and had increased swelling for 3 months and subsequest surgery. He states he has HBP that is now under reasonable control with diet and medication. States avg BP is 150/90 (taken 3 wks ago). Walking is most comfortable. If sit for any length of time it is most uncomfortable. 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 Treatment Goals Patient/Caregiver Goals Pt goal is to: -improve L knee ROM, -decrease ache at nighttime ( current 7/10), -walk with a normal gait, -finish work of cabinets, 8 hr day, 6/days a week with pain less than 7/10. -HEP. 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 PT-OP-C Subjective Start: 02/08/24 18:59 Freq: Status: Active Protocol: Document 02/20/24 09:05 SP (Rec: 02/20/24 09:57 SP [id number]) OP-PT Subjective Patient Comments Patient Comments Pt 5 weeks s/p L knee surgery. He arrives without use of SPC , reports swelling going down in L knee and feels better. Using cold Packs periodically during day while working on construction site, when home elevates L leg with CP. PT-OP-D Balance Start: 02/08/24 18:59 Freq: Status: Active Protocol: Document 02/13/24 13:33 LRN (Rec: 02/13/24 18:25 LRN [id number]) OP-PT Balance Assessment Standing Balance Static Standing Balance Ability Good Dynamic Standing Balance Ability Good Device Used None Standing Balance Comments Pt weight bears more on RLE. Not appropriate for Single leg stance balancing. Villarreal Fall Scale Copyright Permission PT-OP-G Mobility & Gait Start: 02/08/24 18:59 Freq: Status: Active Protocol: Document 02/13/24 13:33 LRN (Rec: 02/13/24 18:25 LRN [id number]) OP Gait Assessment Gait Gait Assistance Required: Independent Able to Maintain Weight Bearing Status Yes During Gait Assistive Devices Assistive Device None Gait Deviations General Gait Pattern Antalgic,Decreased Stride Length,Lateral Trunk Lean,Wide Based Gait Factors Limiting Gait Function Factors Limiting Gait Function Decreased Activity Tolerance, Decreased Sensation,Decreased Strength,Limited Range of Motion,Pain,Poor Balance Stair Climbing Evaluation Technique/Endurance Stair Climbing Direction Ascend and Descend Stair Climbing Technique Step to Step Number of Steps Climbed 4 Comments Stair Climbing Comments Pt reports not ambulating stairs, at home has chair lift . Pt has 16 stairs at home ( shop below). Pt reports at work ambulating 4 steps in a step to step gait . PT-OP-H Neuro Start: 02/08/24 18:59 Freq: Status: Active Protocol: Document 02/13/24 13:33 LRN (Rec: 02/13/24 18:25 LRN [id number]) Sensation Evaluation Comments Summary Comments Decreased sensation to soft touch at posterolateral L knee jt and lateral lower leg. PT-OP-J Posture/Palpation/Skin Start: 02/08/24 18:59 Freq: Status: Active Protocol: Document 02/15/24 09:56 LRN (Rec: 02/15/24 17:18 LRN [id number]) Skin Assessment Circumference Measurement L knee Location 5 cm above patella, jt line, 5 cm below jt line Comments Girth msmt respectively (cm): 46.5, 41, 35.5 PT-OP-K Range of Motion Start: 02/08/24 18:59 Freq: Status: Active Protocol: Document 02/13/24 13:33 LRN (Rec: 02/13/24 18:25 LRN [id number]) Knee Goniometric Range of Motion Knee Right Knee ROM WFL Yes Patient Position Supine Flexion Active (degrees) 128 Extension Active (degrees) 0 Comments AROM: 0-128 deg's with R knee pain. AROM: 0-120 deg's painfree range. Left Knee ROM WFL No Patient Position Supine Flexion Active (degrees) 87 Extension Active (degrees) 15 PT-OP-M Strength Start: 02/08/24 18:59 Freq: Status: Active Protocol: Document 02/13/24 13:33 LRN (Rec: 02/13/24 18:25 LRN [id number]) Hip Strength Hip Manual Muscle Testing Right Comments Generally 5/5 except deferred IR/ER MMT. Left Flexion (L2) 3 Fair Abduction 5 Normal Adduction 2 Poor Comments Deferred IR/ER MMT due to surgery. Knee Strength Knee Manual Muscle Testing Right Comments Generally 5/5 Left Flexion (S2) 3 Fair Extension (L3) 3 Fair Comments Deferred due to pain. Pt is not able to perform full AROM due to pain. Ankle/Foot Strength Ankle and Foot Manual Muscle Testing Right Comments Generally 5/5 Left Dorsiflexion (L4) 5 Normal Plantarflexion (S1) 5 Normal Inversion 4 Good Eversion (S1) 5 Normal PT-OP-Q Treatments Start: 02/08/24 18:59 Freq: Status: Active Protocol: Document 02/20/24 09:05 SP (Rec: 02/20/24 09:57 SP [id number]) Cardio Equipment Bicycle (Upright) Duration (Minutes) 6 Resistance 0 Seat Position 11: 4 min>10: 2 min- full revolutions Other AROM warm up, self attempting ankle mobility tolerated Therapeutic Exercises Sitting Exercises self STMs Sitting Exercise Name quad, HS, calf rolling Side left Equipment Used rolling pin Comments cued gentle/light for swelling reduction mgt Knee flex/ext Sitting Exercise Name AROM knee flex/ext Side left Reps/Minutes 6' Gait Training Gait Activity hurdles Description fwd, lateral Device Used 6 hurdles Distance/Duration 3 laps each Treatment Focus soft TKE stance LE, increase stride & ROM L knee Comments cued R hip and knee flexion & DF as lead > trailing LE, noted decrease in circumduction no AD Device Used 0 Level of Assistance S Distance/Duration 20 ft x3 laps Treatment Focus midline trunk, L hip/knee flexion gait phases Comments front mirror, improved normalizing gait. Manual Therapy Treatment Taping L knee Body Location weave Treatment Focus swelling reduction/lymphatic support Type of Tape Kinesio Tape Skin Inspection normal, intact Manual Techniques Girth measurements Type L knee girth measurement: Body Position Supine Comments 5 cm above: 42.5, Midpatella: 41.5, 5 cm below patella: 36.5 - Self-Care/Home Management Treatment Education Other Education 42.5, 41.5, 36.5- 2- 112* PT-OP-R Modalities Start: 02/08/24 18:59 Freq: Status: Active Protocol: Document 02/20/24 09:05 SP (Rec: 02/20/24 09:57 SP [id number]) Hot Pack/Cold Pack Treatment L knee Location L knee anterior&posterior Patient Position Supine Patient Tolerance Good Comments Reports feels good, colder than his at work in his cooler . PT-OP-T Assessment and Plan Start: 02/08/24 18:59 Freq: Status: Active Protocol: Document 02/20/24 09:05 SP (Rec: 02/20/24 09:57 SP [id number]) Physical Therapy Assessment Goals Four Impairment L knee achy pain rated 7/10 Impairment Swelling and pain in L knee with L knee nighttime pain rated 7/10. Short Term Goal (STG) Pt will be educated in sleeping postures and use of FREDDY wrap to reduce L knee edema and pain. 02/20/24: provided Ktaping anterior L knee for lymph support circulation. 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 STG Duration 2 wks - 02/27/24 updated Care Home Goal (LTG) Decrease ache at nighttime to no greater than 3/10 to improve sleep. LTG Duration 8 wks-04/12/24 Three Impairment Decreased L knee strength limiting gait Short Term Goal (STG) Improve L knee/hip strength to 4/5 with pt able to walk with a normal gait. 02/20/24: progressing: time spent use mirror for gait phase trunk midline, improved more midline but tends to lateral trunk lean, no LOB or sways instability. Utilized hurdles during tx for emphasizing L hip & L knee flexion to assist functional ROM. STG Duration 4 wks-03/12/24 progressing 08/04 Care Home Goal (LTG) Improve L knee/hip strength with pt tolerating finish work of cabinets, at prior level of: 8 hr days, 6 days a week. LTG Duration 8 wks-04/12/24 Two Impairment Decreased L knee AROM limiting stair ambulation Short Term Goal (STG) Improve L knee AROM 0-100 deg' s with pt able to tolerate sitting in chair for 15-30 minutes for meals. STG Duration 4 wks-03/12/24 Clay Burner Goal (LTG) Improve L knee AROM to 0-115 deg's with pt able to amb stairs with a step over step gait. 02/20/24: 2-112 deg L knee AROM after bike and mirian stepping. LTG Duration 8 wks-04/12/24 progressing 08/04 One Impairment Pt lacks appropriate self care HEP. Short Term Goal (STG) Pt will be educated in proper standing posture. 02/20/24: progressing: time spent use mirror for gait phase trunk midline, improved more midline but tends to lateral trunk lean, no LOB or sways instability. STG Duration 1 wks - 02/20/24 progressing 08/04 Care Home Goal (LTG) Pt will be independent in an effective self care HEP for core/hip strengthening and mobility ex's. 02/20/24: verbal review: HS, SLR, QS, SAQ, sit knee flex/ ext. LTG Duration 8 wks-04/12/24 updated 02/20/24 Assessment Summary Assessment Supine: L knee AROM: 2- 112* after activity. Pt had reduction in swelling 5 cm above patella and .5 cm mid patella since previous tx. Pt improved more trunk midline and L hip and knee flexion during gait and use of hurdles with education front of mirror for self feedback corrections, reduction in circumduction during hurdles to normalize gait. Physical Therapy Plan Frequency and Duration Frequency of Treatment 2x/Week Duration of treatment (weeks) 18 Plan of Care Start Date 02/13/24 Plan of Care End Date 04/12/24 Therapeutic Interventions Therapeutic Interventions Gait Training,Home Exercise Program,Joint Mobilizations, Manual Therapy,Neuromuscular Re-education,Self-Care/Home Management,Soft Tissue Mobilization,Taping, Therapeutic Activities, Therapeutic Exercises Modalities Cold Pack/Ice Massage,Electric Stimulation,Hot Packs, Ultrasound Next Visit Focus/Plan Next Note Type Treatment Note Next Visit Plan Ask how Ktaping L knee. Recheck girth measurements, discuss possible use of FREDDY wrap during work hours & educ in use (STG 4). Check BP for norm (1-2 more visits). Assess Hip PROM & MMT hip IR/ ER. Progress when appropriate ROM (bike) very low resistance LE strengthening (bike) and progress Jorge LLE strengthening to include ankle and hip strengthening. Next: educate in proper standing posture (STG 1) & educate in sleeping postures ( STG 4). POC: L knee ROM, strengthening, gait (level & stairs), balance training.
--- NOTE | 2024-02-23 14:15 | PT.OTN ---
Current Diagnoses Stiffness of unspecified knee, not elsewhere classified (02/23/24) Muscle weakness (generalized) (02/23/24) Other abnormalities of gait and mobility (02/23/24) Other specified postprocedural states (02/23/24) Physical Therapy Treatment Note PT-OP-A Visit Information Start: 02/08/24 18:59 Freq: Status: Active Protocol: Document 02/23/24 13:02 LRN (Rec: 02/23/24 14:13 LRN [id number]) Out-Patient Physical Therapy Visit Information Visit Information Visit Type Treatment Note Visit Start Time 13:02 Visit Stop Time 13:50 Visit Number 4 Evaluation Information Evaluation Date 02/13/24 Precautions Precautions Diabetes type II, HBP mostly controlled. *01/24/24: s/p L knee arthroscopy with medial menisectomy and chondroplasty surgery PT-OP-B Current Condition Start: 02/08/24 18:59 Freq: Status: Active Protocol: Document 02/13/24 13:33 LRN (Rec: 02/13/24 18:25 LRN [id number]) Current Condition History of Current Condition Onset Date 3 wks ago (01/24/24) Current Complaints R knee pain at rest, difficulty walking, rtn to work part-time. History of Current Condition Pt is s/p L knee arthroscopy with medial menisectomy and chondroplasty surgery due to reported torn ACL & meniscus, performed at [facility]. Pt states he has had L knee pain a few years, but 5 months ago twisted wrong and had increased swelling for 3 months and subsequest surgery. He states he has HBP that is now under reasonable control with diet and medication. States avg BP is 150/90 (taken 3 wks ago). Walking is most comfortable. If sit for any length of time it is most uncomfortable. 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 Treatment Goals Patient/Caregiver Goals Pt goal is to: -improve L knee ROM, -decrease ache at nighttime ( current 7/10), -walk with a normal gait, -finish work of cabinets, 8 hr day, 6/days a week with pain less than 7/10. -HEP. 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 PT-OP-C Subjective Start: 02/08/24 18:59 Freq: Status: Active Protocol: Document 02/23/24 13:02 LRN (Rec: 02/23/24 14:13 LRN [id number]) OP-PT Subjective Patient Comments Patient Comments Has been packing 60# concrete. Walking up/down stairs normal, but stiff. PT-OP-D Balance Start: 02/08/24 18:59 Freq: Status: Active Protocol: Document 02/13/24 13:33 LRN (Rec: 02/13/24 18:25 LRN [id number]) OP-PT Balance Assessment Standing Balance Static Standing Balance Ability Good Dynamic Standing Balance Ability Good Device Used None Standing Balance Comments Pt weight bears more on RLE. Not appropriate for Single leg stance balancing. Villarreal Fall Scale Copyright Permission PT-OP-G Mobility & Gait Start: 02/08/24 18:59 Freq: Status: Active Protocol: Document 02/13/24 13:33 LRN (Rec: 02/13/24 18:25 LRN [id number]) OP Gait Assessment Gait Gait Assistance Required: Independent Able to Maintain Weight Bearing Status Yes During Gait Assistive Devices Assistive Device None Gait Deviations General Gait Pattern Antalgic,Decreased Stride Length,Lateral Trunk Lean,Wide Based Gait Factors Limiting Gait Function Factors Limiting Gait Function Decreased Activity Tolerance, Decreased Sensation,Decreased Strength,Limited Range of Motion,Pain,Poor Balance Stair Climbing Evaluation Technique/Endurance Stair Climbing Direction Ascend and Descend Stair Climbing Technique Step to Step Number of Steps Climbed 4 Comments Stair Climbing Comments Pt reports not ambulating stairs, at home has chair lift . Pt has 16 stairs at home ( shop below). Pt reports at work ambulating 4 steps in a step to step gait . PT-OP-H Neuro Start: 02/08/24 18:59 Freq: Status: Active Protocol: Document 02/13/24 13:33 LRN (Rec: 02/13/24 18:25 LRN [id number]) Sensation Evaluation Comments Summary Comments Decreased sensation to soft touch at posterolateral L knee jt and lateral lower leg. PT-OP-J Posture/Palpation/Skin Start: 02/08/24 18:59 Freq: Status: Active Protocol: Document 02/15/24 09:56 LRN (Rec: 02/15/24 17:18 LRN [id number]) Skin Assessment Circumference Measurement L knee Location 5 cm above patella, jt line, 5 cm below jt line Comments Girth msmt respectively (cm): 46.5, 41, 35.5 PT-OP-K Range of Motion Start: 02/08/24 18:59 Freq: Status: Active Protocol: Document 02/23/24 13:02 LRN (Rec: 02/23/24 14:13 LRN [id number]) Knee Goniometric Range of Motion Knee Left Knee ROM WFL No Patient Position Supine Flexion Active (degrees) 104 Flexion Passive (degrees) 110 Extension Active (degrees) 10 PT-OP-M Strength Start: 02/08/24 18:59 Freq: Status: Active Protocol: Document 02/13/24 13:33 LRN (Rec: 02/13/24 18:25 LRN [id number]) Hip Strength Hip Manual Muscle Testing Right Comments Generally 5/5 except deferred IR/ER MMT. Left Flexion (L2) 3 Fair Abduction 5 Normal Adduction 2 Poor Comments Deferred IR/ER MMT due to surgery. Knee Strength Knee Manual Muscle Testing Right Comments Generally 5/5 Left Flexion (S2) 3 Fair Extension (L3) 3 Fair Comments Deferred due to pain. Pt is not able to perform full AROM due to pain. Ankle/Foot Strength Ankle and Foot Manual Muscle Testing Right Comments Generally 5/5 Left Dorsiflexion (L4) 5 Normal Plantarflexion (S1) 5 Normal Inversion 4 Good Eversion (S1) 5 Normal PT-OP-Q Treatments Start: 02/08/24 18:59 Freq: Status: Active Protocol: Document 02/23/24 13:02 LRN (Rec: 02/23/24 14:13 LRN [id number]) Cardio Equipment Bicycle (Upright) Duration (Minutes) 8 Resistance 0 Seat Position 11: full revolutions Other AROM warm up, self attempting ankle mobility tolerated Therapeutic Exercises Supine Exercises Heel Slide Supine Exercise Name Active & passive Side left Reps/Minutes 2-3 SH, 15x 2 Comments Extra time to determine max tolerated stretch SLR Side left Reps/Minutes 15x Comments Cued to breath QS Side left Reps/Minutes 5 SH x 10 Comments Rick w/o roll under knee, but one placed for propr stim SAQ Side left Equipment Used Blue roll under knee Reps/Minutes 5 SH, 15x Manual Therapy Treatment Taping L knee Body Location weave, replaced lateral side of K-tape Treatment Focus swelling reduction/lymphatic support Type of Tape Kinesio Tape Skin Inspection normal, intact Comments Pt I/S to remove in 2 days and shave around L knee for future treatment if uncomfortable due to hair on skin. Manual Techniques Blood pressure Type Blood pressure taken at end of treatment after rest in supine. Body Location L arm Body Position Supine Comments BP at rest: 137/82; HR 59 Girth measurements Type L knee girth measurement: Body Position Supine Comments 5 cm above: 42.5, Midpatella: 42, 5 cm below patella: 36 Self-Care/Home Management Treatment Education Other Education FREDDY wrap training of Fig 8 around knee with use of blue strap. Discussed with pt he will probably need 2 wraps and that if the wrap falls, use of tape at the top would help keep wrap in place. Reviewed use of small ice pack to L knee at work. Activities Self-Care/Home Management Activities I/S pt in increase hold time on QS and increase reps with ex's. Encouraged more ROM ex during the day vs forceful stretch 1-2 x/daily. Cautioned pt to not ex into pain. PT-OP-R Modalities Start: 02/08/24 18:59 Freq: Status: Active Protocol: Document 02/20/24 09:05 SP (Rec: 02/20/24 09:57 SP [id number]) Hot Pack/Cold Pack Treatment L knee Location L knee anterior&posterior Patient Position Supine Patient Tolerance Good Comments Reports feels good, colder than his at work in his cooler . PT-OP-T Assessment and Plan Start: 02/08/24 18:59 Freq: Status: Active Protocol: Document 02/23/24 13:02 LRN (Rec: 02/23/24 14:13 LRN [id number]) Physical Therapy Assessment Goals Four Impairment L knee achy pain rated 7/10 Impairment Swelling and pain in L knee with L knee nighttime pain rated 7/10. Short Term Goal (STG) Pt will be educated in sleeping postures and use of FREDDY wrap to reduce L knee edema and pain. 02/20/24: provided Ktaping anterior L knee for lymph support circulation. 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 02/23/24: discussed use of FREDDY wrap & educ pt in Fig 8 wrapping of knee. STG Duration 2 wks - 02/27/24 udated Senior Care Goal (LTG) Decrease ache at nighttime to no greater than 3/10 to improve sleep. LTG Duration 8 wks-04/12/24 Three Impairment Decreased L knee strength limiting gait Short Term Goal (STG) Improve L knee/hip strength to 4/5 with pt able to walk with a normal gait. 02/20/24: progressing: time spent use mirror for gait phase trunk midline, improved more midline but tends to lateral trunk lean, no LOB or sways instability. Utilized hurdles during tx for emphasizing L hip & L knee flexion to assist functional ROM. STG Duration 4 wks-03/12/24 progressing 08/04 Senior Care Goal (LTG) Improve L knee/hip strength with pt tolerating finish work of cabinets, at prior level of: 8 hr days, 6 days a week. LTG Duration 8 wks-04/12/24 Two Impairment Decreased L knee AROM limiting stair ambulation Short Term Goal (STG) Improve L knee AROM 0-100 deg' s with pt able to tolerate sitting in chair for 15-30 minutes for meals. 02/23/24: L knee AROM 10-110 deg's. Sitting driving is uncomortable. STG Duration 4 wks-03/12/24 progressing 02/23/24. Senior Care Goal (LTG) Improve L knee AROM to 0-115 deg's with pt able to amb stairs with a step over step gait. 02/20/24: 2-112 deg L knee AROM after bike and mirian stepping. 02/23/24: Pt able to ambulate stair w/step over step gait. LTG Duration 8 wks-04/12/24 02/23/24: MET GOAL One Impairment Pt lacks appropriate self care HEP. Short Term Goal (STG) Pt will be educated in proper standing posture. 02/20/24: progressing: time spent use mirror for gait phase trunk midline, improved more midline but tends to lateral trunk lean, no LOB or sways instability. STG Duration 1 wks - 02/20/24 progressing 08/04 Senior Care Goal (LTG) Pt will be independent in an effective self care HEP for core/hip strengthening and mobility ex's. 02/20/24: verbal review: HS, SLR, QS, SAQ, sit knee flex/ ext. LTG Duration 8 wks-04/12/24 updated 02/20/24 Assessment Summary Assessment Pt is a 58 yo male 4 wks s/p L knee arthroscopy with medial menisectomy and chondroplasty surgery (01/24/24) due to a reported torn ACL & meniscus. 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 He can now amb stairs with normal gait but has notable discomfort descending 6 step (no problem with 4 step). His L knee AROM is improving. BP is lower today than previously. Physical Therapy Plan Frequency and Duration Frequency of Treatment 2x/Week Duration of treatment (weeks) 18 Plan of Care Start Date 02/13/24 Plan of Care End Date 04/12/24 Next Visit Focus/Plan Next Note Type Treatment Note Next Visit Plan Check resting BP for norm (2 more visits). Try K-tape more over anterior knee at the level of joint line if pt agreeable. Monitor occasionally girth measurement . Assess Hip PROM & MMT hip AB/AD. Progress when appropriate ROM (bike) very low resistance LE strengthening (bike) and progress Jorge LLE strengthening to include ankle and hip strengthening. Next: educate in proper standing posture (STG 1) & educate in sleeping postures ( STG 4). POC: L knee ROM, strengthening, gait (level & stairs), balance training.
--- NOTE | 2024-02-29 12:53 | PT.OTN ---
Current Diagnoses Stiffness of unspecified knee, not elsewhere classified (02/29/24) Muscle weakness (generalized) (02/29/24) Other abnormalities of gait and mobility (02/29/24) Other specified postprocedural states (02/29/24) Physical Therapy Treatment Note PT-OP-A Visit Information Start: 02/08/24 18:59 Freq: Status: Active Protocol: Document 02/29/24 08:11 AB (Rec: 02/29/24 12:53 AB [id number]) Out-Patient Physical Therapy Visit Information Visit Information Visit Note Visit [email or web address] Access [email or web address]: [email or web address] Visit Start Time 09:49 Visit Stop Time 10:29 Visit Number 5 Number of CRAFT DEMONSTRATOR Visits 1 Evaluation Information Evaluation Date 02/13/24 Precautions Precautions Diabetes type II, HBP mostly controlled. *01/24/24: s/p L knee arthroscopy with medial menisectomy and chondroplasty surgery PT-OP-B Current Condition Start: 02/08/24 18:59 Freq: Status: Active Protocol: Document 02/13/24 13:33 LRN (Rec: 02/13/24 18:25 LRN [id number]) Current Condition History of Current Condition Onset Date 3 wks ago (01/24/24) Current Complaints R knee pain at rest, difficulty walking, rtn to work part-time. History of Current Condition Pt is s/p L knee arthroscopy with medial menisectomy and chondroplasty surgery due to reported torn ACL & meniscus, performed at [facility]. Pt states he has had L knee pain a few years, but 5 months ago twisted wrong and had increased swelling for 3 months and subsequest surgery. He states he has HBP that is now under reasonable control with diet and medication. States avg BP is 150/90 (taken 3 wks ago). Walking is most comfortable. If sit for any length of time it is most uncomfortable. 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 Treatment Goals Patient/Caregiver Goals Pt goal is to: -improve L knee ROM, -decrease ache at nighttime ( current 7/10), -walk with a normal gait, -finish work of cabinets, 8 hr day, 6/days a week with pain less than 7/10. -HEP. 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 PT-OP-C Subjective Start: 02/08/24 18:59 Freq: Status: Active Protocol: Document 02/29/24 08:11 AB (Rec: 02/29/24 12:53 AB [id number]) OP-PT Subjective Patient Comments Patient Comments Patient reports pain and swelling are still a probem as well as range. Patient reports he forgot to shave regarding plan to kinesiotape. AROM left knee lacking 12 deg extension to 104 deg flexion start of session. BP left UE in hooklying/LE elevated on wall post manual therapy 153/ 91 HR 73 PT-OP-D Balance Start: 02/08/24 18:59 Freq: Status: Active Protocol: Document 02/13/24 13:33 LRN (Rec: 02/13/24 18:25 LRN [id number]) OP-PT Balance Assessment Standing Balance Static Standing Balance Ability Good Dynamic Standing Balance Ability Good Device Used None Standing Balance Comments Pt weight bears more on RLE. Not appropriate for Single leg stance balancing. Villarreal Fall Scale Copyright Permission PT-OP-G Mobility & Gait Start: 02/08/24 18:59 Freq: Status: Active Protocol: Document 02/13/24 13:33 LRN (Rec: 02/13/24 18:25 LRN [id number]) OP Gait Assessment Gait Gait Assistance Required: Independent Able to Maintain Weight Bearing Status Yes During Gait Assistive Devices Assistive Device None Gait Deviations General Gait Pattern Antalgic,Decreased Stride Length,Lateral Trunk Lean,Wide Based Gait Factors Limiting Gait Function Factors Limiting Gait Function Decreased Activity Tolerance, Decreased Sensation,Decreased Strength,Limited Range of Motion,Pain,Poor Balance Stair Climbing Evaluation Technique/Endurance Stair Climbing Direction Ascend and Descend Stair Climbing Technique Step to Step Number of Steps Climbed 4 Comments Stair Climbing Comments Pt reports not ambulating stairs, at home has chair lift . Pt has 16 stairs at home ( shop below). Pt reports at work ambulating 4 steps in a step to step gait . PT-OP-H Neuro Start: 02/08/24 18:59 Freq: Status: Active Protocol: Document 02/13/24 13:33 LRN (Rec: 02/13/24 18:25 LRN [id number]) Sensation Evaluation Comments Summary Comments Decreased sensation to soft touch at posterolateral L knee jt and lateral lower leg. PT-OP-J Posture/Palpation/Skin Start: 02/08/24 18:59 Freq: Status: Active Protocol: Document 02/15/24 09:56 LRN (Rec: 02/15/24 17:18 LRN [id number]) Skin Assessment Circumference Measurement L knee Location 5 cm above patella, jt line, 5 cm below jt line Comments Girth msmt respectively (cm): 46.5, 41, 35.5 PT-OP-K Range of Motion Start: 02/08/24 18:59 Freq: Status: Active Protocol: Document 02/23/24 13:02 LRN (Rec: 02/23/24 14:13 LRN [id number]) Knee Goniometric Range of Motion Knee Left Knee ROM WFL No Patient Position Supine Flexion Active (degrees) 104 Flexion Passive (degrees) 110 Extension Active (degrees) 10 PT-OP-M Strength Start: 02/08/24 18:59 Freq: Status: Active Protocol: Document 02/13/24 13:33 LRN (Rec: 02/13/24 18:25 LRN [id number]) Hip Strength Hip Manual Muscle Testing Right Comments Generally 5/5 except deferred IR/ER MMT. Left Flexion (L2) 3 Fair Abduction 5 Normal Adduction 2 Poor Comments Deferred IR/ER MMT due to surgery. Knee Strength Knee Manual Muscle Testing Right Comments Generally 5/5 Left Flexion (S2) 3 Fair Extension (L3) 3 Fair Comments Deferred due to pain. Pt is not able to perform full AROM due to pain. Ankle/Foot Strength Ankle and Foot Manual Muscle Testing Right Comments Generally 5/5 Left Dorsiflexion (L4) 5 Normal Plantarflexion (S1) 5 Normal Inversion 4 Good Eversion (S1) 5 Normal PT-OP-Q Treatments Start: 02/08/24 18:59 Freq: Status: Active Protocol: Document 02/29/24 08:11 AB (Rec: 02/29/24 12:53 AB [id number]) Cardio Equipment Bicycle (Upright) Duration (Minutes) 7 Seat Position 11: full revolutions Other post manual Therapeutic Exercises Supine Exercises hamstring stretch Supine Exercise Name added to HEP Side left Reps/Minutes 60 seconds X 2 Comments verbal cues pt ed to perform SLR post HS stretch at home knee flexion on wall Supine Exercise Name added to HEP Side left Reps/Minutes 5 min Comments verbal cues to lower LE down the wall a little farther every minute Heel Slide Supine Exercise Name Active Side left Reps/Minutes X10 X2 SLR Side left Reps/Minutes 2X10 Comments post hamstring stretches Manual Therapy Treatment Soft Tissue Mobilization left knee Mobilization Type Other Intensity/Depth Moderate Body Position Hooklying Comments LE above heart, upward strokes for swelling. PT-OP-R Modalities Start: 02/08/24 18:59 Freq: Status: Active Protocol: Document 02/20/24 09:05 SP (Rec: 02/20/24 09:57 SP [id number]) Hot Pack/Cold Pack Treatment L knee Location L knee anterior&posterior Patient Position Supine Patient Tolerance Good Comments Reports feels good, colder than his at work in his cooler . PT-OP-T Assessment and Plan Start: 02/08/24 18:59 Freq: Status: Active Protocol: Document 02/29/24 08:11 AB (Rec: 02/29/24 12:53 AB [id number]) Physical Therapy Assessment Goals Four Impairment L knee achy pain rated 7/10 Impairment Swelling and pain in L knee with L knee nighttime pain rated 7/10. Short Term Goal (STG) Pt will be educated in sleeping postures and use of FREDDY wrap to reduce L knee edema and pain. 02/20/24: provided Ktaping anterior L knee for lymph support circulation. 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 02/23/24: discussed use of FREDDY wrap & educ pt in Fig 8 wrapping of knee. STG Duration 2 wks - 02/27/24 udated Care Home Goal (LTG) Decrease ache at nighttime to no greater than 3/10 to improve sleep. LTG Duration 8 wks-04/12/24 Three Impairment Decreased L knee strength limiting gait Short Term Goal (STG) Improve L knee/hip strength to 4/5 with pt able to walk with a normal gait. 02/20/24: progressing: time spent use mirror for gait phase trunk midline, improved more midline but tends to lateral trunk lean, no LOB or sways instability. Utilized hurdles during tx for emphasizing L hip & L knee flexion to assist functional ROM. STG Duration 4 wks-03/12/24 progressing 08/04 Traffic Control Specialist Goal (LTG) Improve L knee/hip strength with pt tolerating finish work of cabinets, at prior level of: 8 hr days, 6 days a week. LTG Duration 8 wks-04/12/24 Two Impairment Decreased L knee AROM limiting stair ambulation Short Term Goal (STG) Improve L knee AROM 0-100 deg' s with pt able to tolerate sitting in chair for 15-30 minutes for meals. 02/23/24: L knee AROM 10-110 deg's. Sitting driving is uncomortable. STG Duration 4 wks-03/12/24 progressing 02/23/24. Traffic Control Specialist Goal (LTG) Improve L knee AROM to 0-115 deg's with pt able to amb stairs with a step over step gait. 02/20/24: 2-112 deg L knee AROM after bike and mirian stepping. 02/23/24: Pt able to ambulate stair w/step over step gait. 02/29/2024lacking 10 to 111 end of session AROM left knee LTG Duration 8 wks-04/12/24 02/23/24: MET GOAL One Impairment Pt lacks appropriate self care HEP. Short Term Goal (STG) Pt will be educated in proper standing posture. 02/20/24: progressing: time spent use mirror for gait phase trunk midline, improved more midline but tends to lateral trunk lean, no LOB or sways instability. STG Duration 1 wks - 02/20/24 progressing 08/04 Care Home Goal (LTG) Pt will be independent in an effective self care HEP for core/hip strengthening and mobility ex's. 02/20/24: verbal review: HS, SLR, QS, SAQ, sit knee flex/ ext. 02/29/2024 HS stretch and knee flexion on wall added to HEP LTG Duration 8 wks-04/12/24 updated 02/20/24 Assessment Summary Assessment Pre bike 147/79 HR 70. Dandre reports feeling better end of session, comments he thinks the stretch helped. AROM left knee lacking 10 deg extension to 111 deg post manual therapy and exercise. Physical Therapy Plan Frequency and Duration Frequency of Treatment 2x/Week Duration of treatment (weeks) 18 Plan of Care Start Date 02/13/24 Plan of Care End Date 04/12/24 Next Visit Focus/Plan Next Note Type Treatment Note Next Visit Plan Check resting BP for norm (5 units left ). Try K-tape more over anterior knee at the level of joint line if pt agreeable. Monitor occasionally girth measurement . Assess Hip PROM & MMT hip AB/AD. Progress when appropriate ROM (bike) very low resistance LE strengthening (bike) and progress Jorge LLE strengthening to include ankle and hip strengthening. Next: educate in proper standing posture (STG 1) & educate in sleeping postures ( STG 4). POC: L knee ROM, focus next session - strengthening, gait (level & stairs), balance training.
--- NOTE | 2024-03-05 10:09 | PT.OTN ---
Current Diagnoses Stiffness of unspecified knee, not elsewhere classified (03/05/24) Muscle weakness (generalized) (03/05/24) Other abnormalities of gait and mobility (03/05/24) Other specified postprocedural states (03/05/24) Physical Therapy Treatment Note PT-OP-A Visit Information Start: 02/08/24 18:59 Freq: Status: Active Protocol: Document 03/05/24 07:31 LRN (Rec: 03/05/24 08:19 LRN [id number]) Out-Patient Physical Therapy Visit Information Visit Information Visit Type Treatment Note Visit Note s/p Therapy 147/85 HR 71. Visit Start Time 07:32 Visit Stop Time 08:15 Visit Number 6 Evaluation Information Evaluation Date 02/13/24 Precautions Precautions Diabetes type II, HBP mostly controlled. *01/24/24: s/p L knee arthroscopy with medial menisectomy and chondroplasty surgery PT-OP-B Current Condition Start: 02/08/24 18:59 Freq: Status: Active Protocol: Document 02/13/24 13:33 LRN (Rec: 02/13/24 18:25 LRN [id number]) Current Condition History of Current Condition Onset Date 3 wks ago (01/24/24) Current Complaints R knee pain at rest, difficulty walking, rtn to work part-time. History of Current Condition Pt is s/p L knee arthroscopy with medial menisectomy and chondroplasty surgery due to reported torn ACL & meniscus, performed at [facility]. Pt states he has had L knee pain a few years, but 5 months ago twisted wrong and had increased swelling for 3 months and subsequest surgery. He states he has HBP that is now under reasonable control with diet and medication. States avg BP is 150/90 (taken 3 wks ago). Walking is most comfortable. If sit for any length of time it is most uncomfortable. 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 Treatment Goals Patient/Caregiver Goals Pt goal is to: -improve L knee ROM, -decrease ache at nighttime ( current 7/10), -walk with a normal gait, -finish work of [employer], 8 hr day, 6/days a week with pain less than 7/10. -HEP. 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 PT-OP-C Subjective Start: 02/08/24 18:59 Freq: Status: Active Protocol: Document 03/05/24 07:31 LRN (Rec: 03/05/24 08:19 LRN [id number]) OP-PT Subjective Patient Comments Patient Comments Building a fence for client. States the only time the knee hurts is when he hits his toe on something or bending. PT-OP-D Balance Start: 02/08/24 18:59 Freq: Status: Active Protocol: Document 02/13/24 13:33 LRN (Rec: 02/13/24 18:25 LRN [id number]) OP-PT Balance Assessment Standing Balance Static Standing Balance Ability Good Dynamic Standing Balance Ability Good Device Used None Standing Balance Comments Pt weight bears more on RLE. Not appropriate for Single leg stance balancing. Villarreal Fall Scale Copyright Permission PT-OP-G Mobility & Gait Start: 02/08/24 18:59 Freq: Status: Active Protocol: Document 02/13/24 13:33 LRN (Rec: 02/13/24 18:25 LRN [id number]) OP Gait Assessment Gait Gait Assistance Required: Independent Able to Maintain Weight Bearing Status Yes During Gait Assistive Devices Assistive Device None Gait Deviations General Gait Pattern Antalgic,Decreased Stride Length,Lateral Trunk Lean,Wide Based Gait Factors Limiting Gait Function Factors Limiting Gait Function Decreased Activity Tolerance, Decreased Sensation,Decreased Strength,Limited Range of Motion,Pain,Poor Balance Stair Climbing Evaluation Technique/Endurance Stair Climbing Direction Ascend and Descend Stair Climbing Technique Step to Step Number of Steps Climbed 4 Comments Stair Climbing Comments Pt reports not ambulating stairs, at home has chair lift . Pt has 16 stairs at home ( shop below). Pt reports at work ambulating 4 steps in a step to step gait . PT-OP-H Neuro Start: 02/08/24 18:59 Freq: Status: Active Protocol: Document 02/13/24 13:33 LRN (Rec: 02/13/24 18:25 LRN [id number]) Sensation Evaluation Comments Summary Comments Decreased sensation to soft touch at posterolateral L knee jt and lateral lower leg. PT-OP-J Posture/Palpation/Skin Start: 02/08/24 18:59 Freq: Status: Active Protocol: Document 02/15/24 09:56 LRN (Rec: 02/15/24 17:18 LRN [id number]) Skin Assessment Circumference Measurement L knee Location 5 cm above patella, jt line, 5 cm below jt line Comments Girth msmt respectively (cm): 46.5, 41, 35.5 PT-OP-K Range of Motion Start: 02/08/24 18:59 Freq: Status: Active Protocol: Document 03/05/24 07:31 LRN (Rec: 03/05/24 08:19 LRN [id number]) Knee Goniometric Range of Motion Knee Left Knee ROM WFL No Patient Position Supine Flexion Active (degrees) 113 Comments s/p therapy knee active flexion is 115 deg's, visually noted knee ext is lacking full extension. PT-OP-M Strength Start: 02/08/24 18:59 Freq: Status: Active Protocol: Document 02/13/24 13:33 LRN (Rec: 02/13/24 18:25 LRN [id number]) Hip Strength Hip Manual Muscle Testing Right Comments Generally 5/5 except deferred IR/ER MMT. Left Flexion (L2) 3 Fair Abduction 5 Normal Adduction 2 Poor Comments Deferred IR/ER MMT due to surgery. Knee Strength Knee Manual Muscle Testing Right Comments Generally 5/5 Left Flexion (S2) 3 Fair Extension (L3) 3 Fair Comments Deferred due to pain. Pt is not able to perform full AROM due to pain. Ankle/Foot Strength Ankle and Foot Manual Muscle Testing Right Comments Generally 5/5 Left Dorsiflexion (L4) 5 Normal Plantarflexion (S1) 5 Normal Inversion 4 Good Eversion (S1) 5 Normal PT-OP-Q Treatments Start: 02/08/24 18:59 Freq: Status: Active Protocol: Document 03/05/24 07:31 LRN (Rec: 03/05/24 08:19 LRN [id number]) Cardio Equipment Bicycle (Upright) Duration (Minutes) 8 Resistance 1 Seat Position 11: full revolutions Other post manual Therapeutic Exercises Supine Exercises Knee hang into ext Supine Exercise Name Supine & prone, f/b 10 active knee extensions. Side left Reps/Minutes 1' x 2 each knee flexion on wall Side left Reps/Minutes 5' Comments Cues to breath w/ex Heel Slide Supine Exercise Name Active Side left Reps/Minutes X10 X2 QS Side left Reps/Minutes 5 SH x 10 Comments Rick w/o roll under knee, but one placed for propr stim Prone Exercises Quad stretcj Prone Exercise Name Passive & self assisted Side left Equipment Used belt Reps/Minutes 10 SH x 10 Manual Therapy Treatment Soft Tissue Mobilization C/R prone quad stretch Body Location L Quad Mobilization Type Other Body Position Prone Manual Techniques MWM Type PA glide of L Tib/Fig with knee flexin Body Location L knee Body Position Sup Reps/Duration 15x Blood pressure Type Blood pressure taken at end of treatment after rest in supine. Body Location L arm Body Position Supine Comments BP at rest: 137/82; HR 59 PT-OP-R Modalities Start: 02/08/24 18:59 Freq: Status: Active Protocol: Document 02/20/24 09:05 SP (Rec: 02/20/24 09:57 SP [id number]) Hot Pack/Cold Pack Treatment L knee Location L knee anterior&posterior Patient Position Supine Patient Tolerance Good Comments Reports feels good, colder than his at work in his cooler . PT-OP-T Assessment and Plan Start: 02/08/24 18:59 Freq: Status: Active Protocol: Document 03/05/24 07:31 LRN (Rec: 03/05/24 08:19 LRN [id number]) Physical Therapy Assessment Goals Four Impairment L knee achy pain rated 7/10 Impairment Swelling and pain in L knee with L knee nighttime pain rated 7/10. Short Term Goal (STG) Pt will be educated in sleeping postures and use of FREDDY wrap to reduce L knee edema and pain. 02/20/24: provided Ktaping anterior L knee for lymph support circulation. 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 02/23/24: discussed use of FREDDY wrap & educ pt in Fig 8 wrapping of knee. STG Duration 2 wks - 02/27/24 (02/23/24: MET GOAL) Set Builder Goal (LTG) Decrease ache at nighttime to no greater than 3/10 to improve sleep. 03/05/24: No aching pain at night. LTG Duration 8 wks-04/12/24 (03/05/24: MET GOAL) Three Impairment Decreased L knee strength limiting gait Short Term Goal (STG) Improve L knee/hip strength to 4/5 with pt able to walk with a normal gait. 02/20/24: progressing: time spent use mirror for gait phase trunk midline, improved more midline but tends to lateral trunk lean, no LOB or sways instability. Utilized hurdles during tx for emphasizing L hip & L knee flexion to assist functional ROM. STG Duration 4 wks-03/12/24 progressing 08/04 Set Builder Goal (LTG) Improve L knee/hip strength with pt tolerating finish work of cabinets, at prior level of: 8 hr days, 6 days a week. LTG Duration 8 wks-04/12/24 Two Impairment Decreased L knee AROM limiting stair ambulation Short Term Goal (STG) Improve L knee AROM 0-100 deg' s with pt able to tolerate sitting in chair for 15-30 minutes for meals. 02/23/24: L knee AROM 10-110 deg's. Sitting driving is uncomortable. STG Duration 4 wks-03/12/24 progressing 02/23/24. Set Builder Goal (LTG) Improve L knee AROM to 0-115 deg's with pt able to amb stairs with a step over step gait. 02/20/24: 2-112 deg L knee AROM after bike and mirian stepping. 02/23/24: Pt able to ambulate stair w/step over step gait. 02/29/2024lacking 10 to 111 end of session AROM left knee LTG Duration 8 wks-04/12/24 02/23/24: MET GOAL One Impairment Pt lacks appropriate self care HEP. Short Term Goal (STG) Pt will be educated in proper standing posture. 02/20/24: progressing: time spent use mirror for gait phase trunk midline, improved more midline but tends to lateral trunk lean, no LOB or sways instability. STG Duration 1 wks - 02/20/24 progressing 08/04 Set Builder Goal (LTG) Pt will be independent in an effective self care HEP for core/hip strengthening and mobility ex's. 02/20/24: verbal review: HS, SLR, QS, SAQ, sit knee flex/ ext. 02/29/2024 HS stretch and knee flexion on wall added to HEP LTG Duration 8 wks-04/12/24 updated 02/20/24 Assessment Summary Assessment Pt is a 58 yo male ~9 wks s/p L knee arthroscopy with medial menisectomy and chondroplasty surgery (01/24/24) due to a reported torn ACL & meniscus. He chose not to be K-taped today noting it is quite uncomfortable when tape is removed. AROM left knee active flex is 113 deg's at end of stretching, extension limited. s/p therapy BP 147/ 85 HR 71. Pt's BP and HR appears stabilized and is being managed with diet and exercise; therefore will continue to just monitor in therapy. ROM is being limited by swelling; US recommended. Noted alcohol smell, if pt attends with smell discussion will need to be had with patient. Physical Therapy Plan Frequency and Duration Frequency of Treatment 2x/Week Duration of treatment (weeks) 18 Plan of Care Start Date 02/13/24 Plan of Care End Date 04/12/24 Next Visit Focus/Plan Next Note Type Treatment Note Next Visit Plan Monitor resting BP/HR x1 during therapy. Measure L knee active extension. Assess Hip PROM & MMT hip AB/AD. Next: educate in proper standing posture (STG 1). End with US to L knee. IF pt approves, try K-tape more over anterior knee at the level of joint line. Monitor occasionally girth measurement. Progress ROM (bike) very low resistance, LE strengthening ( bike) and progress Jorge LLE strengthening to include ankle and hip strengthening. POC: L knee ROM, focus next session - strengthening, gait (level & stairs), balance training.
--- NOTE | 2024-03-26 11:19 | PT.OTN ---
Addendum entered and electronically signed by Sarah Cobian, PT 03/26/24 11:25: Late entry: LEFS score 56 (20-39% impaired, score 58-62). Original Note: Current Diagnoses Stiffness of unspecified knee, not elsewhere classified (03/26/24) Muscle weakness (generalized) (03/26/24) Other abnormalities of gait and mobility (03/26/24) Other specified postprocedural states (03/26/24) Physical Therapy Treatment Note PT-OP-A Visit Information Start: 02/08/24 18:59 Freq: Status: Active Protocol: Document 03/26/24 09:47 LRN (Rec: 03/26/24 11:14 LRN [id number]) Out-Patient Physical Therapy Visit Information Visit Information Visit Type Treatment Note Visit Note s/p Therapy Supine BP 171/101, HR 62. Sitting: BP 174/101, HR 64. Visit Start Time 09:47 Visit Stop Time 10:42 Visit Number 7 Evaluation Information Evaluation Date 02/13/24 Precautions Precautions Diabetes type II, HBP mostly controlled. *01/24/24: s/p L knee arthroscopy with medial menisectomy and chondroplasty surgery PT-OP-B Current Condition Start: 02/08/24 18:59 Freq: Status: Active Protocol: Document 02/13/24 13:33 LRN (Rec: 02/13/24 18:25 LRN [id number]) Current Condition History of Current Condition Onset Date 3 wks ago (01/24/24) Current Complaints R knee pain at rest, difficulty walking, rtn to work part-time. History of Current Condition Pt is s/p L knee arthroscopy with medial menisectomy and chondroplasty surgery due to reported torn ACL & meniscus, performed at [facility]. Pt states he has had L knee pain a few years, but 5 months ago twisted wrong and had increased swelling for 3 months and subsequest surgery. He states he has HBP that is now under reasonable control with diet and medication. States avg BP is 150/90 (taken 3 wks ago). Walking is most comfortable. If sit for any length of time it is most uncomfortable. 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 Treatment Goals Patient/Caregiver Goals Pt goal is to: -improve L knee ROM, -decrease ache at nighttime ( current /10), -walk with a normal gait, -finish work of cabinets, 8 hr day, 6/days a week with pain less than 7/10. -HEP. 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 PT-OP-C Subjective Start: 02/08/24 18:59 Freq: Status: Active Protocol: Document 03/26/24 09:47 LRN (Rec: 03/26/24 11:14 LRN [id number]) OP-PT Subjective Patient Comments Patient Comments 2 days ago had dog run into him from the fornt of the knee and now the L knee is swollen and sore again, but prior to that he states his knee was doing great. States he feels good, changed his diet and to get his blood pressure down and thinks BP must be down. No pain with upright bike, R knee stiffness/swelling to start. States his knee was alomst normal. Making self use both feet to climb ladder, ok unless having to bend knee too far. Feels he is walking normal. PT-OP-D Balance Start: 02/08/24 18:59 Freq: Status: Active Protocol: Document 02/13/24 13:33 LRN (Rec: 02/13/24 18:25 LRN [id number]) OP-PT Balance Assessment Standing Balance Static Standing Balance Ability Good Dynamic Standing Balance Ability Good Device Used None Standing Balance Comments Pt weight bears more on RLE. Not appropriate for Single leg stance balancing. Villarreal Fall Scale Copyright Permission PT-OP-G Mobility & Gait Start: 02/08/24 18:59 Freq: Status: Active Protocol: Document 02/13/24 13:33 LRN (Rec: 02/13/24 18:25 LRN [id number]) OP Gait Assessment Gait Gait Assistance Required: Independent Able to Maintain Weight Bearing Status Yes During Gait Assistive Devices Assistive Device None Gait Deviations General Gait Pattern Antalgic,Decreased Stride Length,Lateral Trunk Lean,Wide Based Gait Factors Limiting Gait Function Factors Limiting Gait Function Decreased Activity Tolerance, Decreased Sensation,Decreased Strength,Limited Range of Motion,Pain,Poor Balance Stair Climbing Evaluation Technique/Endurance Stair Climbing Direction Ascend and Descend Stair Climbing Technique Step to Step Number of Steps Climbed 4 Comments Stair Climbing Comments Pt reports not ambulating stairs, at home has chair lift . Pt has 16 stairs at home ( shop below). Pt reports at work ambulating 4 steps in a step to step gait . PT-OP-H Neuro Start: 02/08/24 18:59 Freq: Status: Active Protocol: Document 02/13/24 13:33 LRN (Rec: 02/13/24 18:25 LRN [id number]) Sensation Evaluation Comments Summary Comments Decreased sensation to soft touch at posterolateral L knee jt and lateral lower leg. PT-OP-J Posture/Palpation/Skin Start: 02/08/24 18:59 Freq: Status: Active Protocol: Document 02/15/24 09:56 LRN (Rec: 02/15/24 17:18 LRN [id number]) Skin Assessment Circumference Measurement L knee Location 5 cm above patella, jt line, 5 cm below jt line Comments Girth msmt respectively (cm): 46.5, 41, 35.5 PT-OP-K Range of Motion Start: 02/08/24 18:59 Freq: Status: Active Protocol: Document 03/26/24 09:47 LRN (Rec: 03/26/24 11:14 LRN [id number]) Knee Goniometric Range of Motion Knee Right Knee ROM WFL Yes Patient Position Supine Flexion Active (degrees) 128 Flexion Passive (degrees) 135 Extension Active (degrees) 0 Left Patient Position Supine Flexion Active (degrees) 120 Flexion Passive (degrees) 125 Extension Active (degrees) 2 Extension Passive (degrees) 0 PT-OP-M Strength Start: 02/08/24 18:59 Freq: Status: Active Protocol: Document 03/26/24 09:47 LRN (Rec: 03/26/24 11:14 LRN [id number]) Knee Strength Knee Manual Muscle Testing Left Flexion (S2) 5 Normal Extension (L3) 5 Normal PT-OP-Q Treatments Start: 02/08/24 18:59 Freq: Status: Active Protocol: Document 03/26/24 09:47 LRN (Rec: 03/26/24 11:14 LRN [id number]) Cardio Equipment Bicycle (Upright) Duration (Minutes) 8 Resistance 2 Seat Position 8 with full revolutions Other pre manual Therapeutic Exercises Supine Exercises Post ex BP/HR Supine Exercise Name s/p exer after 5+ min rest: BP 171/101, HR 62 Side left Comments Pt BP/HR taken after further rest in sitting. Recommended pt see primary MD Knee hang into ext Supine Exercise Name Supine & prone, f/b 10 active knee extensions. Side left Reps/Minutes 1' x 2 each Heel Slide Supine Exercise Name Active & Passive Side left Reps/Minutes 8' QS Supine Exercise Name Extension active & passive Side left Reps/Minutes 8' Comments Pillow under ankle/heel. Prone Exercises Hamstring stretch Prone Exercise Name Quad set, posterior knee stretch Side left Reps/Minutes 10 SH x 15, long hold stretch 1' Comments Cued to hang ankle/foot over end of plinth Quad stretcj Prone Exercise Name Passive self assisted Side left Equipment Used belt Reps/Minutes 10 SH x 15, long hold stretch 1' Sitting Exercises Post therapy BP/HR Sitting Exercise Name s/p exercise after 3+ min rest : BP 174/101, HR 64. Side left Comments Pt instructed to seek further medical care with primary care physician. Self-Care/Home Management Treatment Education Other Education Pt educated in proper standing posture and in posturing stress on low back in different postures. Activities Self-Care/Home Management Activities Issued and reviewed handout for Proper Posture: Gage to Safe Movement. PT-OP-R Modalities Start: 02/08/24 18:59 Freq: Status: Active Protocol: Document 02/20/24 09:05 SP (Rec: 02/20/24 09:57 SP [id number]) Hot Pack/Cold Pack Treatment L knee Location L knee anterior&posterior Patient Position Supine Patient Tolerance Good Comments Reports feels good, colder than his at work in his cooler . PT-OP-T Assessment and Plan Start: 02/08/24 18:59 Freq: Status: Active Protocol: Document 03/26/24 09:47 LRN (Rec: 03/26/24 11:14 LRN [id number]) Physical Therapy Assessment Goals Three Impairment Decreased L knee strength limiting gait Short Term Goal (STG) Improve L knee/hip strength to 4/5 with pt able to walk with a normal gait. 02/20/24: progressing: time spent use mirror for gait phase trunk midline, improved more midline but tends to lateral trunk lean, no LOB or sways instability. Utilized hurdles during tx for emphasizing L hip & L knee flexion to assist functional ROM. 03/26/24: Pt feels he is walking normal. L knee strength is 5/5. STG Duration 4 wks-03/12/24 (03/26/24: MET GOAL for L knee strength, hip not assessed) Promotions Officer Goal (LTG) Improve L knee/hip strength with pt tolerating finish work of cabinets, at prior level of: 8 hr days, 6 days a week. 03/26/24: Pt toerating work 8 hrs/day, 7 days a week. Pain /stiffness of the L knee with max flexion position since being ran into by dog 2 days ago. LTG Duration 8 wks-04/12/24 (03/26/24: MET GOAL) Two Impairment Decreased L knee AROM limiting stair ambulation Short Term Goal (STG) Improve L knee AROM 0-100 deg' s with pt able to tolerate sitting in chair for 15-30 minutes for meals. 02/23/24: L knee AROM 10-110 deg's. Sitting driving is uncomortable. 03/26/24: pt able to sit in chair for > 30 minutes. STG Duration 4 wks-03/12/24 (03/26/24: GOAL MET). Promotions Officer Goal (LTG) Improve L knee AROM to 0-115 deg's with pt able to amb stairs with a step over step gait. 02/20/24: 2-112 deg L knee AROM after bike and mirian stepping. 02/23/24: Pt able to ambulate stair w/step over step gait. 02/29/2024lacking 10 to 111 end of session AROM left knee 03/26/24: L Knee AROM 2-120 deg's (PROM 0-125 deg's), LTG Duration 8 wks-04/12/24 (02/23/24: MET GOAL) One Impairment Pt lacks appropriate self care HEP. Short Term Goal (STG) Pt will be educated in proper standing posture. 02/20/24: progressing: time spent use mirror for gait phase trunk midline, improved more midline but tends to lateral trunk lean, no LOB or sways instability. 03/26/24: Pt educated in proper standing posture and Gage to Safe Movement. STG Duration 1 wks - 02/20/24 (03/26/24 : GOAL MET) Promotions Officer Goal (LTG) Pt will be independent in an effective self care HEP for core/hip strengthening and mobility ex's. 02/20/24: verbal review: HS, SLR, QS, SAQ, sit knee flex/ ext. 02/29/2024 HS stretch and knee flexion on wall added to HEP LTG Duration 8 wks-04/12/24 (03/26/24: MET GOAL for knee/hip ext ROM/ strengthening) Assessment Summary Assessment Pt is a 58 yo male s/p L knee arthroscopy with medial menisectomy and chondroplasty surgery (01/24/24) due to a reported torn ACL & meniscus. He attends today reporting he was doing great and had achieved his ROM and strength back and was walking up/down ladders with normal pattern, but 2 days ago was ran into by a dog (from the front) and now has the swelling and stiffness again in the knee. He feels it is slowly improving and has been using self care program routine he initially was started in physical therapy. He feels confident in progressing back towards edema control and return what he was before his recent encounter with a dog running into him. The pt appears to have a good understanding of what he needs to do to reduce swelling and regain his normal L knee ROM. Strength is normal. Of concern was his s/p sitting BP reading of 174/101 (HR 64). It was recommended and stressed to the patient to make appt with his primary care physician and possible consequences of waiting to get his BP under control, and not waiting for his current scheduled appointment later this month. The pt did not indicate approval but noted he might start back on his blood pressure medications as previously prescribed. Physical Therapy Plan Discharge Physical Therapy Discharge Reasons Patient Request Discharge Comments The pt has achieved his goals, but is limited in L knee AROM . Pt feels comfortable progressing back to his prior level before he was ran into by a dog 2 days ago, on his self care HEP. Thank you for your referral.
== END 2024-03-27 13:29 | disposition home or self-care (01) ==
LOC: PHYS 09:45
PROVIDERS: Family Provider Family Medicine; PCP Family Medicine; Referring Provider Physician Assistant; Visit Provider Physician Assistant
DX: Z98.890 Other specified postprocedural states (principal); M62.81 Muscle weakness (generalized); R26.89 Other abnormalities of gait and mobility; M25.669 Stiffness of unspecified knee, not elsewhere classified
CPT/HCPCS: 97110; 97116; 97140; 97162; 97535